=== PATIENT | male | born 1960 | race Caucasian/White ===

== ENCOUNTER 2025-04-10 07:48 | Inpatient (IN) | payer BC ==
[~2025-04-10] VITALS: Ht 170.2 cm; Wt 83.2 kg
--- NOTE | 2025-04-10 08:00 | ELECTROCARDIOGRAPH REPORT ---
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
[2025-04-10 08:17] LABS: MEAN PLATELET VOLUME 9.2 FL (7.4-10.4); RED CELL DISTRIBUTION WIDTH 13.2 % (11.5-14.5)
[2025-04-10 08:37] LABS: CREATININE 1.24 MG/DL (0.60-1.10); PRO BRAIN NATRIURETIC PEPTIDE 33 PG/ML (0-125); TOTAL CARBON DIOXIDE 27.6 MMOL/L (24-32); eCRCL 63 ML/MIN; eGFR 59 ML/MIN
--- NOTE | 2025-04-10 08:42 | Physician Documentation ---
History of Present Illness ~ Chief Complaint: Chest Pain Stated Complaint: CHEST PAIN Time Seen by MD: 08:07 HPI 64-year-old male presenting for acute onset chest pain. He states that he has been having intermittent chest pains that have been worsening over the past week. He states that initially they were happening maybe once or twice a day but over the past couple of days they have been happening every couple of hours. Yesterday they became very intense and this morning he states that he felt the pain once again and came to the ER. The pain is left-sided and radiates to his left arm. When he gets it he states that it is pressure-like and will be very severe. It will last about 30-40 minutes and will go away. Currently he is chest pain-free. The patient has a history of CAD and has had two stents placed in the past the most recent one in 2011. Reports that he also gets short of breath when he gets the chest pains and moving around makes the pain worse. He states that he has been getting the pains even when at rest. No reports of any other associated symptoms. Medication Reconciliation Allergies: Coded Allergies: No Known Allergies (Unverified , 04/10/25) Review of Systems All Other Systems at this time: Reviewed and Negative Physical Exam Vital Signs: Temperature: 98.4, Source: Temporal, Heart Rate: 65, Respiratory Rate: 17, BP: 130/79, Pulse Oximetry: 97, Weight: 84.090 Oxygen Flow Rate: 0 Physical Exam I have reviewed the triage vitals. CONST: Well developed and well nourished. In no acute distress HENT: Head Atraumatic EYES: Pupils are equal, round and reactive to light. Normal conjunctiva NECK: Normal range of motion. Supple. CARDIO: Normal rate and regular rhythm. No murmurs, rubs, or gallops. S1, S2. PULM/CHEST: No respiratory distress. Lungs clear to auscultation. No wheeze ABD: Soft and nontender. Nondistended. Bowel sounds normal. No guarding. : Exam deferred MSK: No edema. No deformity. NEURO: Alert and oriented to person, place and time. Moving all extremities SKIN: Warm and dry. PSYCH: Normal mood and affect. Good eye contact. Progress Results/Orders Results/Orders Orders - FELIPA MAGUIRE MD Chest,Single View (7/13/25 08:22) Monitor (04/10/25 07:58) Saline Lock (04/10/25 07:58) Oxygen (04/10/25 07:58) Hs Troponin I W Calculations (04/10/25 09:58) Hs Troponin I W Calculations (04/10/25 10:58) Page Hospitalist (04/10/25 09:37) Fill Out Med Reconciliation (04/10/25 09:37) Completed Orders - FELIPA MAGUIRE MD Chest,Single View (04/10/25 08:22) Cbc/Diff (04/10/25 07:58) BMP (04/10/25 07:58) PBNP (04/10/25 07:58) Electrocardiogram (04/10/25 07:58) Hs Troponin I W Calculations (04/10/25 07:58) Aspirin 81mg, Enteric-Coated (Ecotrin Ta (04/10/25 08:50) Normal Saline 1000ml (0.9% Sodium Chlori (04/10/25 08:50) Pt Inr (04/10/25 08:46) PTT (04/10/25 08:46) Medications Received in ER Medications (Trade) Dose Ordered Sig/Iada Route PRN Reason Start Time Stop Time Status Last Admin Dose Admin (Ecotrin tablet) 1 tab ONCE ONCE PO 04/10/25 08:50 04/10/25 08:51 DC 04/10/25 09:02 1 TAB Sodium Chloride 1,000 ml @ 1,000 mls/hr ONCE ONCE IV 04/10/25 08:50 04/10/25 09:49 DC 04/10/25 09:02 1,000 MLS/HR Vital Signs 04/10/25 04/10/25 04/10/25 04/10/25 07:51 08:10 08:18 08:21 Temp 98.4 Pulse 71 65 Resp 18 18 17 B/P (MAP) 131/92 130/79 (96) Pulse Ox 98 97 97 O2 Delivery Room Air* O2 Flow Rate 0 0 0 FiO2 21 04/10/25 09:15 Pulse 56 Resp 16 B/P (MAP) 109/72 (84) Pulse Ox 97 O2 Flow Rate 0 Laboratory Tests Test 04/10/25 08:09 04/10/25 10:18 White Blood Count 7.7 Red Blood Count 4.64 L Hemoglobin 15.4 Hematocrit 45.4 Mean Corpuscular Volume 97.8 Mean Corpuscular Hemoglobin 33.1 H Mean Corpuscular Hemoglobin Concent 33.8 Red Cell Distribution Width 13.2 Platelet Count 226 Mean Platelet Volume 9.2 Neutrophils (%) (Auto) 70.4 Lymphocytes (%) (Auto) 18.4 L Monocytes (%) (Auto) 9.4 Eosinophils (%) (Auto) 1.4 Basophils (%) (Auto) 0.4 Neutrophils # (Auto) 5.4 Lymphocytes # (Auto) 1.4 Monocytes # (Auto) 0.7 Eosinophils # (Auto) 0.1 Basophils # (Auto) 0.0 CBC Comment Prothrombin Time 11.1 INR International Normalized Ratio 1.1 Activated Partial Thromboplast Time 26 Coagulation Comments Sodium Level 137 Potassium Level 4.0 Chloride Level 105 Carbon Dioxide Level 27.6 Anion Gap 4 L Blood Urea Nitrogen 18 Creatinine 1.24 H Estimated GFR/1.73 m2 59 BUN/Creatinine Ratio 14.5 Glucose Level 126 H Calcium Level 9.7 Troponin I High Sensitivity 74 Pro-B-Type Natriuretic Peptide 33 Albumin 4.0 Chemistry Comments EKG/XRAY/CT/US/VASC/MRI EKG : Additional Comment EKG as interpreted by ED MD indicating normal sinus rhythm with a rate of 62 beats per minute, no ischemia, normal axis Chest X-Ray : Additional Comments CHEST RADIOGRAPH Indication: CP Technique: DI CHEST,SINGLE VIEW Comparison: None FINDINGS: The cardiac silhouette is unremarkable. The lungs demonstrate perihilar and bibasilar airspace opacities. The pulmonary vasculature is prominent. Small left pleural effusion. There is no pneumothorax. IMPRESSION: As above Heart Score: Heart Score Response (Comments) Value History Highly Suspicious 2 EKG Normal 0 Age 45-64 1 Risk Factors >3 or Hx ASHD 2 Troponin Normal limit 0 Total 5 Medical Decision Making Additional Information 64-year-old male with a history of CAD presenting with acute onset chest pain. The pattern of the chest pain is similar to an unstable angina pattern. His EKG is unremarkable. Troponins in the remainder of his lab work or thus far normal. Patient is chest pain-free currently however given the concerning nature of his chest pain and his history it would be prudent to have him admitted for ACS rule out and further risk stratification. Report called to admitting hospitalist team who accepted the patient. Departure Disposition: ADMITTED INPATIENT Admitted to Inpatient Unit: to hospitalist Admission Level of Care: Med/Surg with Tele Impression: Primary Impression: Acute chest pain Additional Impression: Unstable angina Condition: Guarded Referrals: NO PRIMARY CARE PROVIDER (PCP) Signature Scribe Signature: 1 Attestation: 1 FELIPA MAGUIRE MD Apr 10, 2025 08:42
--- NOTE | 2025-04-10 08:54 | RADIOLOGY REPORT ---
CHEST RADIOGRAPH Indication: CP Technique: DI CHEST,SINGLE VIEW Comparison: None FINDINGS: The cardiac silhouette is unremarkable. The lungs demonstrate perihilar and bibasilar airspace opacit ies. The pulmonary vasculature is prominent. Small left pleural effusion. There is no pneumothorax. IMPRESSION: As above
[2025-04-10 09:02] LABS: APTT 26 SECONDS (22-32); INR 1.1 INR
[2025-04-10] MEDS: normal saline 1000ml 1,000 ML IV ONE (09:02)
[2025-04-10] MEDS: aspirin 81mg, enteric-coated 1 TAB TABLET.DR PO ONE (09:02)
[2025-04-10] MEDS ORDERED: heparin 10,000 units/1 ML INJ IV PRN (11:05)
[2025-04-10] MEDS ORDERED: magnesium sulf-water 4G/100mL 100 ML IV PRN (11:10)
[2025-04-10] MEDS ORDERED: ondansetron/PF 4mg/2ml inj IV PRN (11:10)
[2025-04-10] MEDS ORDERED: HYDROcodone/acetaminophen 10/325mg tab PO PRN (11:10)
[2025-04-10] MEDS: PERFLUTREN PROTEIN-A MICROSPHR (Optison) 0.22 MG/ML 3ML VIAL IV ONE (11:10)
[2025-04-10] MEDS ORDERED: HYDROcodone/acetaminophen 5mg/325mg tablet PO PRN (11:10)
[2025-04-10] MEDS ORDERED: magnesium sulf-water 2g/50mL 50 ML IV PRN (11:10)
[2025-04-10] MEDS ORDERED: potassium Cl 20 mEq SR tablet PO PRN ×2 (11:10)
[2025-04-10] MEDS ORDERED: mag hydrox/Alum hydrox/simeth 30ml oral suspension PO PRN (11:10)
[2025-04-10] MEDS ORDERED: magnesium Cl slow-release 64mg tablet PO PRN (11:10)
[2025-04-10] MEDS ORDERED: potassium Cl 40MEQ/1/2NS 520ml 520 ML IV PRN (11:10)
[2025-04-10] MEDS ORDERED: EZET10TA48 PO (11:11)
[2025-04-10] MEDS ORDERED: EVOL140P3 SQ (11:11)
[2025-04-10] MEDS ORDERED: METF-900 PO (11:11)
[2025-04-10] MEDS ORDERED: ISOS30TA84 PO (11:11)
[2025-04-10] MEDS ORDERED: FENO160T34 PO (11:11)
[2025-04-10] MEDS ORDERED: CARV3.123 PO (11:11)
[2025-04-10] MEDS ORDERED: LEVO50TA8 PO (11:11)
[2025-04-10] MEDS ORDERED: LISI10TA27 PO (11:11)
--- NOTE | 2025-04-10 11:18 | ELECTROCARDIOGRAPH REPORT ---
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
[2025-04-10] MEDS: heparin 10,000 units/1 ML INJ IV ONE (11:32)
[2025-04-10] MEDS: heparin 25,000 UNIT/250ml bag 250 ML IV PRN (11:33)
[2025-04-10] MEDS: MESSAGE TO NURSING IV ONE (11:35)
--- NOTE | 2025-04-10 11:39 | HISTORY AND PHYSICAL-Residence ---
History & Physical Providers to CC Resident Creating Document: AIYANA RAJAN, GERARDO ~ History of Present Illness Reason for Admit\Complaint: Unstable angina History of Present Illness This is a 64 year old male patient with past history of CAD, hypothyroidism ,hypertension and prediabetes presented with symptoms of chest pain he described the pain as pressure-like pain rated the pain 07/10 and when he described that the pain radiated to his left arm. Patient has been having the pain for the last 11 days had multiple episodes of the pain. Not associated with any nausea ,vomiting, diaphoresis ,lightheadedness Patient underwent stenting in 2011 for his coronary artery disease and has been on strict medical adherence with his medications since then. Patient was given aspirin 324 mg in the ED. Patient's EKG did not show any significant changes in the ED. his last two levels of troponin 74 and jumped to 85. He was started on heparin drip by the ER physician because of the jump. Patient was supposed to have a Lexiscan done on the of this month but he developed angina like she was pains for the last 11 days and had to come to the ER today. Patient follows up with Dr. Treadwell for his cardiology. Patient's primary care doctor is Gladys Lopez. Patient also follows up with Dr. Damon ([facility]) Allergies: Coded Allergies: No Known Allergies (Unverified , 04/10/25) Home Medications Home Medications Active Reported Carvedilol 3.125 Mg Tablet 1 Tab PO BID Fenofibrate 160 Mg Tablet 1 Tab PO DAILY Repatha Sureclick (Evolocumab) 140 Mg/Ml Pen.injctr 1 Ml SQ Q2W Levothyroxine Sodium 50 Mcg Tablet 1 Tab PO DAILY Metformin ER* (Metformin HCl) 500 Mg Tab.sr.24h 1 Tab PO BID Ezetimibe 10 Mg Tablet 1 Tab PO DAILY Isosorbide Mononitrate Er (Isosorbide Mononitrate) 30 Mg Tab.er.24h 1 Tab PO BID Lisinopril 10 Mg Tablet 1 Tab PO DAILY Past Medical History Past Medical History Coronary artery disease(2011)-underwent stenting Hypothyroidism Hypertension Prediabetes Past Surgical History Surgical History Comment Stenting underwent in 2012 Surgical procedure for penile fracture(10 years ago) Past Social History Social History Comment Patient drinks alcohol in moderation 2-3 glasses of wine once a week Not a smoker Does not endorse any drugs Smoking: Non-Smoker ROS All Other Systems: Reviewed and Negative (Except for pertinent positive symptoms) Exam Vitals: Vital Signs Date Time Temp Pulse Resp B/P (MAP) Pulse Ox O2 Delivery O2 Flow Rate FiO2 04/10/25 11:00 56 17 124/74 (91) 97 0 04/10/25 08:18 Room Air* 21 04/10/25 07:51 98.4 General: Awake , alert, and oriented x4, resting comfortably in the bed, in no acute distress HEENT: Atraumatic, normocephalic, EOMI, anicteric sclera ; pink conjunctiva Neck: Trachea midline. Supple, full range of motion, no JVD Cardiac: Regular rhythm, regular rate with no murmurs all over the precordium. Respiratory: Equal breath sounds bilaterally, no tachypnea, no wheezing ,rub or rales, Chest wall is symmetric and without deformity. Gastrointestinal: Abdomen symmetric, non-distended, soft, non-tender, normal bowel sounds x4 quadrant, normoactive, no hepatosplenomegaly Musculoskeletal: No pedal edema, no cyanosis Neurological: Speech is clear, alert, and oriented x 4. No motor or sensory deficit, deep tendon reflexes normal, cerebellar intact. Cranial nerves II-XII intact. Skin: Face appears flushed but patient said that was his normal Diagnostic Data Last Recorded Lab Results: 04/10/25 0809 04/10/25 0809 Diagnostic Data: Laboratory Tests Test 04/10/25 08:09 Prothrombin Time 11.1 SECONDS (9.0-12.0) INR International Normalized Ratio 1.1 INR Activated Partial Thromboplast Time 26 SECONDS (22-32) Coagulation Comments Additional Plan 1. Unstable Angina (UA) Troponin-74,85 patient initially symptoms of chest pain rated 7/10, radiating to the left arm. No ST-segment changes on EKG. Serial troponins-74,85,75. TAMMY score = 4 intermediate risk (20% risk at 14 days of: all-cause mortality, new or recurrent [place], or severe recurrent ischemia requiring urgent revascularization.) Heart score=2 Low score (0.9-1.7% risk of adverse cardiac event) Plan:Lipid profile ordered,Echocardiogram ordered Patient was initially started on heparin drip in the ED,we discontinued the heparin drip. Started the patient on aspirin 81 mg metoprolol 25 mg and atorvastatin 80 mg. Lexiscan has been ordered for tomorrow 2. Coronary artery disease: Patient was diagnosed coronary artery disease in 2011 and has been on medications since then. Patient underwent stenting in 2011. Patient is on carvedilol 3. ACUTE KIDNEY INJURY, possible vasomotor nephropathy Patient's creatinine is elevated to 1.24, starting the patient on 50 mL/hour IV fluids His proBNP is negative Ordered serum osmolality ,serum sodium, urine osmolality ,urine sodium and fractional excretion of sodium(prerenal versus renal) 4. Prediabetes Patient takes metformin HLC she 500 mg once in the morning and once in the night every day We will continue to treat him with insulin based on hyperglycemia hypoglycemia sliding scale. Hb A1c is 5.6 4. Hyperlipidemia Patient takes Raptha(Evolocumab) injection 140 mg every other week per Dr. Treadwell Patient also takes fenofibrate 160 mg daily p.m.. 5. Hypothyroidism Patient is on levothyroxine 50 mcg, we will continue his home medication 6. Acute Stress disorder Work related stress Patient take Sertaline HCL 25mg,1 tab every other day Addition to this patient takes testosterone injections 0.35 twice a week and Trimix 1 mg p.r.n. when needed for intimacy. Patient follows up with his [facility] We will continue his medications once home rec is done. Pending home rec Code Status: Full code DVT Prophylaxis: SCDs Nutrition: Heart healthy diet, NPO from 3:00 a.m. for Lexiscan Prognosis: Guarded Disposition: Patient will undergo with Lexiscan tomorrow Aiyana Rajan, Internal medicine resident,PGY-1 Date of Service: Apr 10, 2025 Billing Provider: NOBLE REIS MD,AIYANA, RES Apr 10, 2025 11:39
[2025-04-10 12:32] VITALS: BP 117/77; PULSE 60; RESP 14; TEMP 97.5; O2SAT 98
[2025-04-10] MEDS ORDERED: ASPI-920 PO (13:23)
[2025-04-10] MEDS ORDERED: [UNRECOGNIZED DRUG - CODE] (13:23)
[2025-04-10] MEDS ORDERED: SERT-432 PO (13:24)
[2025-04-10] MEDS: clopidogrel 300mg tablet PO ONE (13:31)
[2025-04-10 15:00] VITALS: BP 109/70; PULSE 60; RESP 16; TEMP 97.6; O2SAT 97
[2025-04-10 16:42] LABS: LEUKOCYTE ESTERASE ,URINE TRACE (Neg); NITRITES, URINE NEGATIVE (Neg); OCCULT BLOOD,URINE NEGATIVE (Neg)
[2025-04-10 16:43] LABS: UA COLLECTION TYPE NON-SPECIFIED
[2025-04-10 16:52] LABS: MUCUS STRANDS NONE SEEN /LPF (Neg); SQUAMOUS EPITHELIAL CELL,UR NONE SEEN /LPF (FEW)
[2025-04-10] MEDS ORDERED: aminophylline 500mg/20ml vial IV PRN (16:55)
[2025-04-10] MEDS ORDERED: metoprolol tartrate 1mg/ml inj IV PRN (16:55)
[2025-04-10 18:00] VITALS: BP 122/82; PULSE 65; RESP 14; TEMP 97.8; O2SAT 95
[2025-04-10] MEDS ORDERED: metoprolol succinate 25mg (24-HOUR) SR. Tablet PO SCH (18:00)
[2025-04-10] MEDS: metoprolol succinate 25mg (24-HOUR) SR. Tablet PO SCH (19:42)
[2025-04-10] MEDS: K and/or MAG REPLACEMENT MC SCH (19:43)
[2025-04-10 20:00] VITALS: RESP 17; O2SAT 96
[2025-04-10 22:00] VITALS: BP 142/83; PULSE 74; RESP 17; TEMP 97.6; O2SAT 96
[2025-04-11] VITALS (25 sets, daily range): BP systolic 120–190; BP diastolic 73–102; PULSE 50–96; RESP 14–27; TEMP 97.3–97.8; O2SAT 94–99
[2025-04-11 04:01] LABS: OSMOLALITY UA 481.0 MOSM/K (50-1400)
[2025-04-11 04:03] LABS: CREATININE,URINE RANDOM 79.0 MG/DL
[2025-04-11 06:06] LABS: MEAN PLATELET VOLUME 9.7 FL (7.4-10.4); RED CELL DISTRIBUTION WIDTH 13.4 % (11.5-14.5)
[2025-04-11 06:51] LABS: CREATININE 1.22 MG/DL (0.60-1.10); TOTAL CARBON DIOXIDE 25.3 MMOL/L (24-32); eCRCL 64 ML/MIN
[2025-04-11 06:52] LABS: PHOSPHORUS 3.0 MG/DL (2.3-4.5); eGFR 60 ML/MIN
[2025-04-11 07:31] LABS: OSMOLALITY 290 MOSM/K (280-300)
[2025-04-11] MEDS: regadenoson 0.4mg/5ml syringe IV PRN (12:23)
[2025-04-11] MEDS: aminophylline 250mg/10ml inj. IV PRN (12:32)
--- NOTE | 2025-04-11 14:38 | RADIOLOGY REPORT ---
Reason for study/Clinical History: unstable angina Comparison Study: None Myocardial Perfusion Study with SPECT Technique: The patient received an intravenous injection of mCi of technetium-99m Sestamibi while at rest. After a short delay, SPECT tomographic images of the heart were obtained. The patient then went to the stress lab where they received an intravenous Lexiscan utilizing standard protocol. mC i of technetium-99m Sestamibi was injected intravenously immediately after the start of the infusio n. Gated SPECT tomographic images of the heart were acquired and processed. Findings/ IMPRESSION: Reversible defects suggestive of acute ischemia are present in the anterior wall and septal wall. Subtle reversible defect in the inferior wall may represent artifact versus mild ischemia. No fixed defects to suggest chronic infarct. Left ventricular ejection fraction is 39%.
[2025-04-11] MEDS ORDERED: dextrose 50%-water 50ml dispensing syringe IV PRN ×3 (15:20→21:05)
[2025-04-11] MEDS ORDERED: DEXTROSE 15 GM of carb/4 tabs (each vial/BOTTLE has 4 tablets) PO PRN ×2 (15:20)
[2025-04-11] MEDS ORDERED: glucagon, human recombinant 1mg kit SUBCUT PRN (15:20)
[2025-04-11] MEDS: REPATHA SURECLICK 140 MG SQ SCH (15:20)
--- NOTE | 2025-04-11 15:25 | PROGRESS NOTE- Residence ---
Progress Note - Resident Providers to CC Resident Creating Document: BIPIN RAJAN, RES ~ Antibiotic Timeout Antibiotic Ordered?: No Subjective The patient has been evaluated at the bedside. The patient currently denies any chest pain shortness of breath. Objective Vital Signs Date Time Temp Pulse Resp B/P (MAP) Pulse Ox O2 Delivery O2 Flow Rate FiO2 04/11/25 12:37 60 16 156/89 97 Room Air 0.0 04/11/25 11:00 97.4 04/10/25 08:18 21 Physical exam: General: Well alert, well oriented, not confused, not agitated, not in acute distress, well cooperated during the physical. HEENT: Conjunctive are pink, sclerae clear, no icterus, pupil is equal in both sides, reactive to light, no ear discharge, no pharyngeal erythema or an edema. Neck: Supple, no JVD, no lymphadenopathy and thyromegaly. Chest: Equal air entry on both lungs, no additional sounds no rhonchi no wheezing at the moment. Cardiovascular: S1-S2 regular sinus rhythm and, regular rate, no gallops, no rubs, no murmurs Abdomen: No visible peristalsis, Bowel sounds present on auscultation, soft, nontender, no guarding, no rigidity Extremities: No obvious deformities, no pitting edema bilaterally, capillary refill intact, peripheral pulsations are intact on both sides Central Nervous System: No focal neurological deficits, no motor or sensory weakness in all 4 extremities, could move all 4 extremities, 2+ deep tendon reflexes, negative Babinski. Musculoskeletal: No joint swelling, deformities, inflammations, and no scoliosis and back tenderness Skin: Warm and dry. Result Diagram: 04/11/25 0521 04/11/25 0521 Coagulation Studies Laboratory Tests Test 04/10/25 08:09 04/11/25 05:21 Prothrombin Time 11.1 SECONDS (9.0-12.0) INR International Normalized Ratio 1.1 INR Activated Partial Thromboplast Time 26 SECONDS (22-32) Coagulation Comments Assessment Assessment 64-year-old male patient came to the hospital with chief complaint of chest pain mostly with exertion. Plan Plan Unstable Angina: S/p two stents in 2011 after ACS: Troponin-74,85 patient initially symptoms of chest pain rated 7/10, radiating to the left arm. No ST-segment changes on EKG. Serial troponins-74,85,75. TAMMY score = 4 intermediate risk (20% risk at 14 days of: all-cause mortality, new or recurrent [place], or severe recurrent ischemia requiring urgent revascularization.) Heart score=2 Low score (0.9-1.7% risk of adverse cardiac event) Plan:Lipid profile ordered,Echocardiogram ordered Patient was initially started on heparin drip in the ED,we discontinued the heparin drip. Started the patient on aspirin 81 mg metoprolol 25 mg and atorvastatin 80 mg. Lexiscan has been ordered for tomorrow. 04/11/2025: Lexiscan: Reversible defects suggestive of acute ischemia are present in the anterior wall and septal wall. Subtle reversible defect in the inferior wall may represent artifact versus mild ischemia. No fixed defects to suggest chronic infarct. Left ventricular ejection fraction is 39%. Echocardiogram: LVEF 50-55%, overall systolic function is mildly reduced, right ventricle is mildly dilated in size with normal function. Cardiology: Dr. Treadwell consulted. Awaiting recommendations. Follow-up lipid panel. Continue aspirin 81 mg daily. Continue atorvastatin 80 mg daily. On metoprolol succinate 25 mg daily. Acute kidney injury, possible vasomotor nephropathy Creatinine 1.22, BUN/creatinine ratio 11.5. His proBNP is normal. Ordered serum osmolality ,serum sodium, urine osmolality ,urine sodium and fractional excretion of sodium(prerenal versus renal). 04/11/2025: Fractional excretion of sodium 1.3%: Indeterminate. BUN/creatinine ratio 11.5, GFR 60. NS at 50 mL/hour Diabetes mellitus: Patient takes metformin HLC she 500 mg once in the morning and once in the night every day. Current hemoglobin A1c 5.6. Hyper/hypoglycemia protocol in place. Sliding scale short-acting insulin. Hyperlipidemia Continue Evolocumab injection 140 mg every other week per Dr. Treadwell Fenofibrate 160 mg daily p.m.. Hypothyroidism Continue levothyroxine 50 mcg daily. Acute Stress disorder Work related stress Continued sertraline 25 mg Q 48 H. Code status: Full code DVT prophylaxis: Heparin Analgesia/sedation: Blanca /morphine Line/tube: PIV GI prophylaxis: None Nutrition: NPO PT: Ordered Prognosis: Guarded Disposition: We will continue medical therapy. Cardiology consulted, awaiting recommendations. Bipin Carranza Internal Medicine Resident [facility] Date of Service: Apr 11, 2025 Billing Provider: NOBLE REIS MD, FRANCO LUIS, RES Apr 11, 2025 15:25
[2025-04-11] MEDS ORDERED: INSULIN LISPRO 100 UNIT/ML INSULN.PEN MULTI-DOSE SQ SCH (17:00)
[2025-04-11] MEDS: normal saline 1000ml 1,000 ML IV SCH (17:20)
--- NOTE | 2025-04-11 17:44 | CONSULTATION REPORT ---
History of Present Illness Providers to CC CC: ALEIDA TREADWELL MD ~ Reason for Admit\Admit Dx: Cardiology consultation History of Present Illness This is a 64-year-old male with history of coronary artery disease, hypertension, hyperlipidemia on Repatha, hypothyroidism. He had a stent to the distal right coronary artery and PDA in 2011 at [facility]. Presented secondary to increasing chest pain with radiation down the left arm as well as dyspnea on exertion for the past 11 days. Underwent Lexiscan stress test that showed anteroseptal reversibility. TTE with a preserved LVEF. Minimally elevated troponins. Cardiology consultation was requested with Dr. Treadwell who is patient's primary core maker. Allergies: Coded Allergies: No Known Allergies (Unverified , 04/10/25) Home Medications Home Medications Active Reported Sertraline HCl 25 Mg Tablet 1 Tab PO Q48H 30 Days Testosterone-Anastrozl 75-4 mg (Testosterone/Anastrozole) 75 Mg-4 Mg Pellet.ea. 0.35 THS Aspirin Chewable (Aspirin) 81 Mg Tab.chew 81 Mg PO DAILY Fenofibrate 160 Mg Tablet 1 Tab PO DAILY Repatha Sureclick (Evolocumab) 140 Mg/Ml Pen.injctr 1 Ml SQ Q2W Levothyroxine Sodium 50 Mcg Tablet 1 Tab PO DAILY Metformin ER* (Metformin HCl) 500 Mg Tab.sr.24h 1 Tab PO BID Isosorbide Mononitrate Er (Isosorbide Mononitrate) 30 Mg Tab.er.24h 1 Tab PO BID Past Medical History Medical History Comment Coronary artery disease Hypertension Hyperlipidemia Prediabetes Hypothyroidism Past Surgical History Surgical History Comment Coronary stent Past Family History Family History Comment Father had an ND. at age 70 Past Social History Social History Comment Lifelong nonsmoker. No alcohol or drug use. Physical Exam Last Vital Signs Recorded: RN Vital Signs have been reviewed: Yes, Temperature: 97.6, Source: Temporal, Heart Rate: 59, Respiratory Rate: 16, BP: 144/99, Pulse Oximetry: 97, Weight: 81.100 Physical Exam General: Awake, alert, oriented. No apparent distress Neck: Supple. Normal range of motion. No JVD Respiratory: Lungs are clear to auscultation bilaterally. No respiratory distress. Chest: Normal shape and size. No accessory muscle use. Cardiovascular: Regular rate and rhythm. S1-S2. No murmur, gallop, rub. Gastrointestinal: Abdomen is soft. Nontender to palpation. Bowel sounds present. Extremities: No lower extremity edema, cyanosis or clubbing. Neurologic: Alert and oriented x4. Nonfocal Psychiatric: Normal mood and affect. Skin: Normal color. Warm and dry. Review of Systems ROS Patient complained of chest pain as noted in HPI. Furthermore had dyspnea on exertion. Was asked, but otherwise denies review of systems. Results Cardiac Stress Test Cardiac Stress Test Ordering Physician: ALYSSA RAJAN Exam: NM SURYA SCAN Reason for study/Clinical History: unstable angina Comparison Study: None Myocardial Perfusion Study with SPECT Technique: The patient received an intravenous injection of mCi of technetium- 99m Sestamibi while at rest. After a short delay, SPECT tomographic images of the heart were obtained. The patient then went to the stress lab where they received an intravenous Lexiscan utilizing standard protocol. mCi of technetium-99m Sestamibi was injected intravenously immediately after the start of the infusion. Gated SPECT tomographic images of the heart were acquired and processed. Findings/ IMPRESSION: Reversible defects suggestive of acute ischemia are present in the anterior wall and septal wall. Subtle reversible defect in the inferior wall may represent artifact versus mild ischemia. No fixed defects to suggest chronic infarct. Left ventricular ejection fraction is 39%. Electronically Signed by:THIERRY MELENDEZ MD Date & Time: 04/11/25 1435 Diagram Lab Result Diagram: 04/11/25 0521 04/11/25 0521 Assessment/Plan Additional Plan Unstable angina Hx PCI RCA/PAD 2011 --Lexiscan with reversibility the anterior/septal wall --recommend angiogram. The risks, benefits and alternatives were reviewed with him. He had the opportunity to ask questions and wishes to proceed. He is being scheduled for this evening. --aspirin 81 mg daily --metoprolol succinate 25 mg daily --continue Repatha. --check lipids Hypertension --start lisinopril Case reviewed with Dr. Annette Treadwell who is in agreement with this plan. Supervising MD Supervising Physician: TONYA Erazo NP Apr 11, 2025 17:44
[2025-04-11] MEDS ORDERED: verapamil 2.5 mg/ml inj IV ONE (18:12)
[2025-04-11] MEDS ORDERED: fentaNYL/PF 50MCG/1 ML 2ML syringe ONE (18:13)
[2025-04-11] MEDS ORDERED: heparin 1,000unit/ml 10ml vial 10 ML ONE (18:13)
[2025-04-11] MEDS ORDERED: LIDOcaine 1% 30ml preserv. free vial ONE (18:13)
[2025-04-11] MEDS ORDERED: midazolam 1 mg/ML 2ml injection ONE (18:13)
--- NOTE | 2025-04-11 18:41 | CARDIOLOGY REPORT ---
APPROVED REPORT EXAM: Comprehensive 2D, Doppler, and color-flow Echocardiogram. Patient Location: [facility] B Heart Rate: 60's bpm Rhythm: SINUS Indications CHEST PAIN STENTS x2 2011 (RCA) HYPTERTENSION Rink Rat: Too Treadwell MD Previous echo: [facility] 02-11-22 EF 55-60%, trTR, trMR, mLVH 2D Dimensions RVDd 3.5 cm IVSd 0.9 (0.7-1.1cm) LVDd 4.8 cm PWd 1.0 (0.7-1.1cm) IVSs 1.2 (0.8-1.2cm) LVDs 4.1 (2.5-4.0cm) PWs 1.3 (0.8-1.2cm) LVOT Diameter 1.98 (1.8-2.4cm) IVC 14.98 mmFS (%) 14.5 % SV 32.5 ml CO 1.9 L/min M-Mode Dimensions Left Atrium(MM) 3.88 (2.5-4.0cm) Aortic Root 2.78 (2.2-3.7cm) Aortic Cusp Exc 1.82 (1.5-2.0cm) MV EPSS 1.1 (<0.5cm) Aortic Valve AoV Peak Arnel. 127.2 cm/s AoV VTI 26.0 cm AO Peak GR. 6.5 mmHg AO Mean GR. 4 mmHg LVOT VTI 18.18 cm LVOT Peak Arnel. 98.6 cm/s JOSÉ(VTI)/BSA 2.15 cm2/m2 JOSÉ (VTI) 2.15 cm2 Mitral Valve MV E Velocity 88.2 cm/s MV Peak Gr. 3 mmHg MV DECEL TIME 148 ms MV A Velocity 59.6 cm/s MV PHT 56 ms E/A Ratio 1.5 MVA (PHT) 3.93 cm2 MV VMax88.5 cm/s TDI Lateral E' P. V9.96 cm/s E/Lateral E' 8.9 Pulmonary Vein S1 Velocity 66.3 cm/s D2 Velocity 57.1 cm/s PVa Efbnfsgi08.0 cm/s PVa [id number] msec LEFT VENTRICLE Normal LV size and wall thickness. Overall systolic function is mildly reduced. LVEF is 50-55%. RIGHT VENTRICLE RV is mildly dilated in size with normal function. ATRIA The left atrium size is normal. AORTIC VALVE Trileaflet AV appears mildly sclerotic and calcified without stenosis. Trivial insufficiency. MITRAL VALVE Mild MV annular calcification without stenosis. Trace regurgitation. TRICUSPID VALVE TV appears structurally normal with trace regurgitation. PULMONIC VALVE Normal PV without stenosis, physiologic insufficiency. GREAT VESSELS The aortic root is normal in size. IVC is normal in size and collapses greater than 50% with inspirat ion. PERICARDIUM Normal pericardium. No effusion. Prominant fat pad Other Information Study Quality: Adequate but TDS SSN window Conclusion Normal LV size and wall thickness. Overall systolic function is mildly reduced. LVEF is 50-55%. RV is mildly dilated in size with normal function. The left atrium size is normal. Trileaflet AV appears mildly sclerotic and calcified without stenosis. Trivial insufficiency. Mild MV annular calcification without stenosis. Trace regurgitation. TV appears structurally normal with trace regurgitation. Normal pericardium. No effusion. Prominant fat pad
[2025-04-11] MEDS ORDERED: nitroGLYCERIN 500mcg/5mL D5W 5 ML IV ONE (18:51)
[2025-04-11] MEDS ORDERED: heparin, porcine 5000 units/ml vial SQ SCH (20:00)
[2025-04-11] MEDS ORDERED: OXAZEpam 15mg capsule PO PRN (20:05)
[2025-04-11] MEDS ORDERED: HYDROcodone/acetaminophen 5mg/325mg tablet PO PRN (20:05)
[2025-04-11] MEDS: HEPARIN DRIP INITAL BOLUS --- DO NOT GIVE/ORDER MC ONE ×2 (20:45)
[2025-04-11] MEDS: HEPARIN DRIP-CARDIAC**PHARMACIST-TO-DOSE IV ONE (20:45)
[2025-04-11] MEDS: isosorbide mononitrate 30mg tab.SR.24H PO SCH (21:05)
[2025-04-11] MEDS ORDERED: VANCOMYCIN/H2O 1.5g/300mL PB 300 ML IV ONE (21:05)
[2025-04-11] MEDS: ceFAZolin 2gm/dext,iso 50mL 50 ML IV ONE (21:05)
[2025-04-11] MEDS ORDERED: insulin glargine (Lantus) pen - multi-dose SQ PRN (21:05)
--- NOTE | 2025-04-11 21:08 | CONSULTATION REPORT ---
Consult Providers to CC ~ History of Present Illness Reason for Admit\Complaint: angina History of Present Illness Mr Reilly is a 64 year old male with known CAD, s/p PCI in 2011. Admitted with a 2 week history of progressive exertional chest pain/pressure. Noted to have slight troponin, which prompted a LHC. Findings included high grade lesions of the left main, proximal LAD, diag, mid RCA. He is currently pain free and hemodynamically stable- accompanied by his spouse and daughter. 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 Allergies: Coded Allergies: No Known Allergies (Unverified , 04/10/25) Home Medications Home Medications Active Reported Sertraline HCl 25 Mg Tablet 1 Tab PO Q48H 30 Days Testosterone-Anastrozl 75-4 mg (Testosterone/Anastrozole) 75 Mg-4 Mg Pellet.ea. 0.35 THS Aspirin Chewable (Aspirin) 81 Mg Tab.chew 81 Mg PO DAILY Fenofibrate 160 Mg Tablet 1 Tab PO DAILY Repatha Sureclick (Evolocumab) 140 Mg/Ml Pen.injctr 1 Ml SQ Q2W Levothyroxine Sodium 50 Mcg Tablet 1 Tab PO DAILY Metformin ER* (Metformin HCl) 500 Mg Tab.sr.24h 1 Tab PO BID Isosorbide Mononitrate Er (Isosorbide Mononitrate) 30 Mg Tab.er.24h 1 Tab PO BID Past Medical History Past Medical History HTN, hypercholesterolemia, CKD, CAD, anxiety Exam Vitals: Vital Signs Date Time Temp Pulse Resp B/P (MAP) Pulse Ox O2 Delivery O2 Flow Rate FiO2 04/11/25 18:30 55 04/11/25 17:22 97 Room Air* 0 21 04/11/25 15:00 97.6 16 144/99 (114) General: NAD HEENT: PERRLA, mucous membrane without lesions, good dentition. Neck: supple, no JVD Chest: clear bilat Cardiovascular: RRR, no murmurs Abdomen: soft, ND/NT Extremities: no edema, brisk cap refill Central Nervous System: no deficits Musculoskeletal: full ROM Skin: no lesions, warm Diagnostic Data Last Recorded Lab Results: 04/11/25 0521 04/11/25 0521 Diagnostic Data: Laboratory Tests Test 04/10/25 08:09 04/11/25 05:21 Prothrombin Time 11.1 SECONDS (9.0-12.0) INR International Normalized Ratio 1.1 INR Activated Partial Thromboplast Time 26 SECONDS (22-32) Coagulation Comments Additional Plan 64 year old male with 2 weeks of unstable angina, found to have multi-vessel CAD involving the left main, currently stable. We discussed general options including medical therapy, PCI, and surgical revascularization. Given the extensive disease, I have recommended surgical intervention. We discussed some of the technical aspects of the procedure including risks and benefits. He and his family understood and had all questions answered to their satisfaction. pre- op studies ordered. Will plan for surgery tomorrow am. Heparin gtt started. AYAH SAM MD Apr 11, 2025 21:08
[2025-04-11] MEDS: heparin 25,000 UNIT/250ml bag 250 ML IV PRN (21:12)
[2025-04-11 21:15] LABS: MEAN PLATELET VOLUME 9.4 FL (7.4-10.4); RED CELL DISTRIBUTION WIDTH 13.2 % (11.5-14.5)
[2025-04-11 21:20] LABS: APTT 50 SECONDS (22-32); INR 1.1 INR
[2025-04-11] MEDS: MESSAGE TO NURSING IV ONE (21:40)
[2025-04-11 22:17] LABS: ABG BASE EXCESS -2.3 mmol/L (-2.0-3.0); ABG HCO3 21.5 mmol/L (21.0-28.0); ABG OXYGEN SATURATION 96.4 % (94.0-98.0); ABG PCO2 (T) 34.3 mmHg (35.0-48.0); ABG PH (T) 7.414 (7.350-7.450); ABG PO2 (T) 79.6 mmHg (83.0-108.0); FCOHb 1.1 % (0.5-1.5); FHHb 3.6 % (0.0-5.0); FIO2 21.0 mmHg/%; FMetHb 0.1 % (0.0-1.5); FO2Hb 95.2 % (94.0-98.0); MODE ROOM AIR; PATIENT TEMPERATURE 36.6; TOTAL HEMOGLOBIN 17.0 G/dl (13.5-17.5)
--- NOTE | 2025-04-11 22:21 | RADIOLOGY REPORT ---
NON-CONTRAST CHEST COMPUTERIZED TOMOGRAPHY REASON FOR STUDY: PRE-OP CABG COMPARISON: None TECHNIQUE: The exam was performed on a multidetector spiral scanner. Spiral scans were acquired throu gh the chest. 2-D coronal and sagittal reformatted images were provided. Radiation optimization: All CT scans at this facility use at least one of these dose optimization techniques: Automated exposure control mA and/or kV adjustment per patient size (includes targeted exams where dose is matched to cl inical indication) or iterative reconstruction. RADIATION DOSE: CTDI: 17 mGy DLP: 564 mGy-cm FINDINGS: The lungs are grossly clear. There is no bronchiectasis or honeycombing. There is no pleu ral effusion. There is no pneumothorax. The heart is mildly enlarged. There are coronary artery calci fications. There is no thoracic aortic aneurysm. There is no significant calcification of the ascendi ng aorta. Partial visualization of the upper abdomen demonstrates calcified gallstones. No acute osse ous abnormality is identified. IMPRESSION: No acute cardiopulmonary pathology. No significant calcification of the ascending aorta. Coronary artery disease.
[2025-04-12] VITALS (16 sets, daily range): BP systolic 70–180; BP diastolic 42–99; PULSE 55–87; RESP 13–32; TEMP 97.2–97.8; O2SAT 94–98
[2025-04-12 03:37] LABS: MEAN PLATELET VOLUME 9.6 FL (7.4-10.4); RED CELL DISTRIBUTION WIDTH 13.2 % (11.5-14.5)
[2025-04-12 03:43] LABS: INR 1.1 INR
[2025-04-12 03:47] LABS: CHOL/HDL RATIO 2.0 (0.00-4.99); CREATININE 1.05 MG/DL (0.60-1.10); LDL CHOLESTEROL 24 MG/DL (50-100); PHOSPHORUS 4.1 MG/DL (2.3-4.5); TOTAL CARBON DIOXIDE 27.9 MMOL/L (24-32); eCRCL 74 ML/MIN; eGFR 71 ML/MIN
[2025-04-12] MEDS: heparin 10,000 units/1 ML INJ IV PRN (04:16)
[2025-04-12] MEDS: MESSAGE TO NURSING IV ONE (04:34)
[2025-04-12] MEDS: heparin 5,000 units/ml 10ML vial IV ONE (04:37)
[2025-04-12] MEDS ORDERED: BUPIVAcaine 0.5% inj/PF 30 ML ONE (06:39)
[2025-04-12] MEDS ORDERED: gelatin sponge, absorbable (Gelfoam 100) sponge TP ONE (06:39)
[2025-04-12] MEDS: levoTHYROXINE 25mcg tablet PO SCH (07:19)
[2025-04-12] MEDS: mupirocin 2% nasal ointment 1gm UD NS SCH (07:25)
[2025-04-12] MEDS: MESSAGE TO NURSING PO ONE ×3 (07:25→16:02)
[2025-04-12] MEDS: INSULIN LISPRO 100 UNIT/ML INSULN.PEN MULTI-DOSE SQ SCH (08:00)
[2025-04-12] MEDS: FENOFIBRATE 160 MG TABLET PO SCH (08:00)
--- NOTE | 2025-04-12 08:24 | VASCULAR REPORT ---
PROCEDURE: [facility] VL VENOUS Exam Date: 04/12/2025 06:47 AM History: Pre op cabg Findings: Technique: Duplex Doppler evaluation of the superficial veins of the right and left lower extremities was perfor med including color Doppler and spectral/pulsed waveform analysis. Findings: Measurements of the lower extremity superficial veins in millimeters (mm) are provided below. RIGHT GREAT SAPHENOUS VEIN (GSV) in mm: 3.7 at proximal thigh, patent. 3.4 at mid thigh, patent. 3.4 at distal thigh, patent. 2.8 at proximal calf, patent. 2.0 at mid calf, patent. 2.1 at distal calf, patent. LEFT GREAT SAPHENOUS VEIN (GSV) in mm: 2.3 at proximal thigh, patent. 2.0 at mid thigh, patent. 2.4 at distal thigh, patent. 3.3 at proximal calf, patent. 2.0 at mid calf, patent. 2.2 at distal calf, patent. Impression: Lower extremity superficial venous mapping as detailed above.
--- NOTE | 2025-04-12 08:26 | VASCULAR REPORT ---
Carotid Duplex Clinical History: Preop CABG evaluation Comparison: None Technique: Duplex Doppler evaluation of the extracranial carotid and vertebral arteries including color Doppler and spectral/pulsed waveform analysis was performed. Findings: RIGHT SIDE: The peak systolic velocities are 62 cm/s in the CCA, 475 cm/s in the ICA. The ICA/CCA ratio is 9.13. The external carotid artery is patent with peak systolic velocity of 129 cm/s proximally. The subclavian artery is patent with peak systolic velocity of 84 cm/s. There is appropriate antegrade flow in the right vertebral artery. LEFT SIDE: The peak systolic velocities are 78 cm/s in the CCA, 116 cm/s in the ICA. The ICA/CCA ratio is 1.56. The external carotid artery is patent with peak systolic velocity of 165 cm/s proximally. The subclavian artery is patent with peak systolic velocity of 124 cm/s. There is appropriate antegrade flow in the left vertebral artery. IMPRESSION: Moderate to severe heterogeneous irregular plaque with calcification noted at the carotid artery bifu rcation extending into the proximal internal carotid arteries bilaterally, [id number]-left. Greater than 70% stenosis, possible near occlusion visualized in the right internal carotid artery. The left internal carotid artery displays less than 50% stenosis per peak systolic velocity criteria. Visually the left internal carotid artery appears greater than 50% stenosis. Less than 50% stenosis in the bilateral external and common carotid arteries. Antegrade flow in bilateral vertebral arteries. Multiphasic waveforms in the subclavian arteries, tony aterally. Reference: Radiology 2003; 229:340-346 Normal ICA PSV is <125 cm/sec and no plaque or intimal thickening is visible sonographically addition al criteria include ICA/CCA PSV ratio <2.0 and ICA EDV <40 cm/sec <50% ICA stenosis ICA PSV is <125 cm/sec and plaque or intimal thickening is visible sonographically additional criteria include ICA/CCA PSV ratio <2.0 and ICA EDV <40 cm/sec 50-69% ICA stenosis ICA PSV is 125-230 cm/sec and plaque is visible sonographically additional criter ia include ICA/CCA PSV ratio of 2.0-4.0 and ICA EDV of 40-100 cm/sec 70% ICA stenosis but less than near occlusion ICA PSV is >230 cm/sec and visible plaque and luminal narrowing are seen at torres-scale and color Doppler ultrasound (the higher the Doppler parameters lie above the threshold of 230 cm/sec, the greater the likelihood of severe disease) additional criteria include ICA/CCA PSV ratio >4 and ICA EDV >100 cm/sec
[2025-04-12] MEDS: heparin 10,000 units/1 ML INJ IV ONE (09:00)
[2025-04-12] MEDS ORDERED: propofol inj 20 ML IV ONE (09:08)
[2025-04-12] MEDS ORDERED: rocuronium 10mg/ml inj IV ONE ×5 (09:09→16:29)
[2025-04-12] MEDS ORDERED: SUfentanil 50mcg/ml 1ml amp IV ONE (09:10)
[2025-04-12] MEDS ORDERED: MIDAZolam 1 MG/ML 5ML VIAL ONE (09:10)
[2025-04-12] MEDS: VANCOMYCIN/H2O 1.5g/300mL PB 300 ML IV ONE (09:58)
[2025-04-12] MEDS: midazolam 1 mg/ML 2ml injection IV ONE (10:36)
[2025-04-12 11:16] LABS: ABG BASE EXCESS -0.2 mmol/L (-2.0-3.0); ABG HCO3 23.8 mmol/L (21.0-28.0); ABG OXYGEN SATURATION 98.0 % (94.0-98.0); ABG PCO2 37.2 mmHg (35.0-48.0); ABG PH 7.424 (7.350-7.450); ABG PO2 106.1 mmHg (83.0-108.0); CL (ABG) 105 mmol/L (98-107); FCOHb 0.4 % (0.5-1.5); FHHb 2.0 % (0.0-5.0); FMetHb 0.3 % (0.0-1.5); FO2Hb 97.3 % (94.0-98.0); GLUCOSE (ABG) 116 mg/dl (65-95); IONIZED CA (ABG) 1.19 mmol/L (1.15-1.33); K (ABG) 4.4 mmol/L (3.40-4.50); TOTAL HEMOGLOBIN 15.4 G/dl (13.5-17.5)
[2025-04-12] MEDS ORDERED: sodium bicarbonate (8.4%) 1 mEq/ml syringe ONE (12:00)
[2025-04-12] MEDS ORDERED: albumin (Human) 5% 250ml BOTTLE IV ONE (12:00)
[2025-04-12 12:50] LABS: ACT @ 1.70 U 278 SEC (193-297); ACT @ 2.84 U 343 SEC (260-420); BASELINE ACT 145 SEC (101-148); PATIENT WEIGHT 81.1k KG
[2025-04-12] MEDS ORDERED: isosorbide mononitrate 30mg tab.SR.24H PO SCH ×2 (13:14→15:29)
--- NOTE | 2025-04-12 14:26 | PROCEDURE NOTE - Respiratory ---
Procedure Note-Respiratory Providers to CC Copies To 1: AYAH SAM MD; DELLA FULTON MD Procedure Name: This is a spirometry study dated April 11, 2025. Spirometry measurements: Both the forced vital capacity and the FEV1 are normal. The FEV1 ratio is normal. Some of the flow rates show slight red uction. Bronchodilator was not administered as part of the study. Conclusion: This study shows very mild abnormality. There is evidence for obstructive ventilatory defect although it appears to be quite mild. We have no previous studies for comparison. SVETA TABOR MD Apr 12, 2025 14:26
[2025-04-12 14:30] LABS: ABG BASE EXCESS -0.1 mmol/L (-2.0-3.0); ABG HCO3 24.4 mmol/L (21.0-28.0); ABG OXYGEN SATURATION 99.4 % (94.0-98.0); ABG PCO2 39.1 mmHg (35.0-48.0); ABG PH 7.413 (7.350-7.450); CL (ABG) 104 mmol/L (98-107); FCOHb 0.3 % (0.5-1.5); FHHb 0.6 % (0.0-5.0); FMetHb 0.3 % (0.0-1.5); FO2Hb 98.8 % (94.0-98.0); GLUCOSE (ABG) 104 mg/dl (65-95); IONIZED CA (ABG) 1.01 mmol/L (1.15-1.33); TOTAL HEMOGLOBIN 11.8 G/dl (13.5-17.5)
[2025-04-12 14:41] LABS: ACTIVATED CLOTTING TIME 660.0 SEC (101-148)
[2025-04-12 15:00] LABS: ABG BASE EXCESS -1.1 mmol/L (-2.0-3.0); ABG HCO3 23.6 mmol/L (21.0-28.0); ABG OXYGEN SATURATION 99.5 % (94.0-98.0); ABG PCO2 39.5 mmHg (35.0-48.0); ABG PH 7.395 (7.350-7.450); CL (ABG) 105 mmol/L (98-107); FCOHb 0.2 % (0.5-1.5); FHHb 0.5 % (0.0-5.0); FMetHb 0.3 % (0.0-1.5); FO2Hb 99.0 % (94.0-98.0); GLUCOSE (ABG) 121 mg/dl (65-95); IONIZED CA (ABG) 1.07 mmol/L (1.15-1.33); K (ABG) 5.3 mmol/L (3.40-4.50); TOTAL HEMOGLOBIN 12.6 G/dl (13.5-17.5)
[2025-04-12 15:10] LABS: ACTIVATED CLOTTING TIME 579.0 SEC (101-148)
[2025-04-12 15:30] LABS: ABG BASE EXCESS -2.1 mmol/L (-2.0-3.0); ABG HCO3 22.6 mmol/L (21.0-28.0); ABG OXYGEN SATURATION 99.5 % (94.0-98.0); ABG PCO2 38.6 mmHg (35.0-48.0); ABG PH 7.386 (7.350-7.450); CL (ABG) 105 mmol/L (98-107); FCOHb 0.2 % (0.5-1.5); FHHb 0.5 % (0.0-5.0); FMetHb 0.3 % (0.0-1.5); FO2Hb 99.0 % (94.0-98.0); GLUCOSE (ABG) 130 mg/dl (65-95); IONIZED CA (ABG) 1.07 mmol/L (1.15-1.33); K (ABG) 4.9 mmol/L (3.40-4.50); TOTAL HEMOGLOBIN 12.4 G/dl (13.5-17.5)
[2025-04-12 15:39] LABS: ACTIVATED CLOTTING TIME 499.0 SEC (101-148)
[2025-04-12 16:01] LABS: ABG BASE EXCESS -2.4 mmol/L (-2.0-3.0); ABG HCO3 22.5 mmol/L (21.0-28.0); ABG OXYGEN SATURATION 99.5 % (94.0-98.0); ABG PCO2 39.5 mmHg (35.0-48.0); ABG PH 7.374 (7.350-7.450); CL (ABG) 107 mmol/L (98-107); FCOHb 0.1 % (0.5-1.5); FHHb 0.5 % (0.0-5.0); FMetHb 0.0 % (0.0-1.5); FO2Hb 99.4 % (94.0-98.0); GLUCOSE (ABG) 141 mg/dl (65-95); IONIZED CA (ABG) 1.06 mmol/L (1.15-1.33); K (ABG) 4.8 mmol/L (3.40-4.50); TOTAL HEMOGLOBIN 12.3 G/dl (13.5-17.5)
[2025-04-12] MEDS: vancomycin/NS 1 GM ADD-VANTAGE 250 ML IV ONE (16:01)
[2025-04-12] MEDS: Insulin Reg/NS 100units/100mL 100 ML IV SCH ×2 (16:02→19:03)
[2025-04-12] MEDS: MESSAGE TO PHARMACY IJ ONE (16:02)
[2025-04-12] MEDS ORDERED: NITR0.4T48 SL (16:06)
[2025-04-12 16:12] LABS: ACTIVATED CLOTTING TIME 604.0 SEC (101-148)
[2025-04-12 16:34] LABS: ABG BASE EXCESS -3.4 mmol/L (-2.0-3.0); ABG HCO3 21.5 mmol/L (21.0-28.0); ABG OXYGEN SATURATION 99.4 % (94.0-98.0); ABG PCO2 38.2 mmHg (35.0-48.0); ABG PH 7.369 (7.350-7.450); CL (ABG) 107 mmol/L (98-107); FCOHb 0.2 % (0.5-1.5); FHHb 0.6 % (0.0-5.0); FMetHb 0.0 % (0.0-1.5); FO2Hb 99.2 % (94.0-98.0); GLUCOSE (ABG) 143 mg/dl (65-95); IONIZED CA (ABG) 1.05 mmol/L (1.15-1.33); K (ABG) 4.2 mmol/L (3.40-4.50); TOTAL HEMOGLOBIN 11.7 G/dl (13.5-17.5)
--- NOTE | 2025-04-12 16:37 | PROGRESS NOTE- Residence ---
Progress Note - Resident Providers to CC Resident Creating Document: ALYSSA RAJAN RES CC: NOBLE REIS MD ~ Antibiotic Timeout Antibiotic Ordered?: No Subjective Patient was taken to the operation theater for his cardiac catheterization Objective Vital Signs Date Time Temp Pulse Resp B/P (MAP) Pulse Ox O2 Delivery O2 Flow Rate FiO2 04/12/25 09:45 97.9 61 17 96 04/12/25 08:00 Room Air 04/12/25 07:00 111/70 (84) 04/11/25 17:22 0 21 Result Diagram: 04/12/25 0210 04/12/25 0310 Coagulation Studies Laboratory Tests Test 04/11/25 20:54 04/12/25 03:10 04/12/25 11:22 04/12/25 16:07 Activated Partial Thromboplast Time 50 SECONDS (22-32) H Prothrombin Time 11.0 SECONDS (9.0-12.0) INR International Normalized Ratio 1.1 INR APTT (Heparin Protocol) 41 SECONDS (45-60) L Coagulation Comments Patient Sex (Coag) M Patient Height (Coag) 178cm Patient Weight (Coag) 81.1k KG Patient Blood Volume 5971 ML Pump Volume 1500 ML Total Blood Volume 7471 ML Projected Heparin Concentration 3.2 MG/KG Heparin [place] 77 Calculated Heparin Bolus 95864 UNITS Activated Coagulation Time Baseline 145 SEC (101-148) Activated Coag Time 1.70 U/mL 278 SEC (193-297) Activated Coag Time 2.84 U/mL 343 SEC (260-420) Heparin Level (COAG) 3.5 MG/KG Calculated Heparin Req (Hep Assay) 0 UNITS Calculated Protamine Req (Hep Assay 284 MG Activated Clotting Time 604 SEC (101-148) H Assessment Assessment 64-year-old male patient came to the hospital with chief complaint of chest pain mostly with exertion. Plan Plan Unstable Angina: S/p two stents in 2011 after ACS: Patient initially presented with symptoms of chest pain rated 7/10, radiating to the left arm. No ST-segment changes on EKG. Serial troponins-74,85,75. TAMMY score = 4 intermediate risk Heart score=2 Low score His medications include;aspirin 81 mg daily,atorvastatin 80 mg daily,metoprolol succinate 25 mg daily. 04/11/2025: Lexiscan: Reversible defects suggestive of acute ischemia are present in the anterior wall and septal wall. Subtle reversible defect in the inferior wall may represent artifact versus mild ischemia. Left ventricular ejection fraction is 39%. Echocardiogram: LVEF 50-55%, overall systolic function is mildly reduced, right ventricle is mildly dilated in size with normal function. [employer] and cardiovascular surgeons are involved, and they recommended surgical intervention for this patient due to his multi-vessel CAD involving the left main. Patient will undergo his CABG today Acute kidney injury, possible vasomotor nephropathy, trending down Fractional excretion of sodium 1.3%: Indeterminate. BUN/creatinine ratio 11.5, GFR 60. NS at 50 mL/hour Creatinine today is 1.03 Diabetes mellitus: Patient takes metformin HLC she 500 mg once in the morning and once in the night every day. Current hemoglobin A1c 5.6. Hyper/hypoglycemia protocol in place. Sliding scale short-acting insulin. Hyperlipidemia Continue Evolocumab injection 140 mg every other week per Dr. Treadwell Fenofibrate 160 mg daily p.m.. Hypothyroidism Continue levothyroxine 50 mcg daily. Acute Stress disorder Work related stress Continued sertraline 25 mg Q 48 H. Code status: Full code DVT prophylaxis: Heparin Analgesia/sedation: [place] /morphine Line/tube: PIV GI prophylaxis: None Nutrition: NPO PT: Ordered Prognosis: Guarded Disposition: Patient will undergo his CABG today. Alyssa Rajan,PGY-1 Internal Medicine Resident Date of Service: Apr 12, 2025 Billing Provider: NOBLE REIS MD, JAHNAVI, RES Apr 12, 2025 16:37
[2025-04-12 16:44] LABS: ACTIVATED CLOTTING TIME 519.0 SEC (101-148)
[2025-04-12 17:14] LABS: ABG BASE EXCESS -1.8 mmol/L (-2.0-3.0); ABG HCO3 23.9 mmol/L (21.0-28.0); ABG PCO2 44.3 mmHg (35.0-48.0); ABG PH 7.349 (7.350-7.450); CL (ABG) 107 mmol/L (98-107); FCOHb 0.4 % (0.5-1.5); FHHb 20.5 % (0.0-5.0); FMetHb 0.0 % (0.0-1.5); FO2Hb 79.1 % (94.0-98.0); GLUCOSE (ABG) 129 mg/dl (65-95); IONIZED CA (ABG) 1.20 mmol/L (1.15-1.33); K (ABG) 3.7 mmol/L (3.40-4.50); TOTAL HEMOGLOBIN 10.7 G/dl (13.5-17.5)
[2025-04-12 17:16] LABS: ACTIVATED CLOTTING TIME 123 SEC (101-148)
[2025-04-12] MEDS ORDERED: sodium phosphate inj. 15 MMOL in dextrose 5%-water 250 ML IV PRN (18:35)
[2025-04-12] MEDS ORDERED: potassium Cl 40MEQ/270ML bag 250 ML IV PRN (18:35)
[2025-04-12] MEDS ORDERED: magnesium hydroxide 30ml (MOM) UD suspension PO PRN (18:35)
[2025-04-12] MEDS ORDERED: potassium Cl 40MEQ/1/2NS 520ml 520 ML IV PRN (18:35)
[2025-04-12] MEDS ORDERED: dextrose 50%-water 50ml dispensing syringe IV PRN (18:35)
[2025-04-12] MEDS ORDERED: magnesium sulf-water 4G/100mL 100 ML IV PRN (18:35)
[2025-04-12] MEDS ORDERED: normal saline 250ml IV soln 250 ML IV PRN (18:35)
[2025-04-12] MEDS ORDERED: insulin glargine (Lantus) pen - multi-dose SQ PRN (18:35)
[2025-04-12] MEDS ORDERED: nitroGLYCERIN-Tridil 50MG/D5W 250 ML IV PRN (18:35)
[2025-04-12] MEDS ORDERED: metoclopramide 5 mg/ml inj IV PRN (18:35)
[2025-04-12] MEDS ORDERED: mineral oil 133ml enema RC PRN (18:35)
[2025-04-12] MEDS ORDERED: ondansetron/PF 4mg/2ml inj IV PRN (18:35)
[2025-04-12] MEDS ORDERED: DOBUTamine-DoBUTrex 500mg/D5W 250 ML IV PRN (18:35)
[2025-04-12] MEDS ORDERED: potassium Cl 20 mEq SR tablet PO PRN (18:35)
[2025-04-12] MEDS ORDERED: potassium CL 10mEq/100ml bag 100 ML IV PRN (18:35)
[2025-04-12] MEDS ORDERED: sodium phosphate inj. 30 MMOL in dextrose 5%-water 250 ML IV PRN (18:35)
[2025-04-12] MEDS ORDERED: HYDROcodone/acetaminophen 10/325mg tab PO PRN ×2 (18:35)
[2025-04-12] MEDS ORDERED: bisacodyl 10mg suppository rectal RC PRN (18:35)
[2025-04-12 18:56] LABS: ABG BASE EXCESS -2.4 mmol/L (-2.0-3.0); ABG HCO3 21.8 mmol/L (21.0-28.0); ABG OXYGEN SATURATION 95.7 % (94.0-98.0); ABG PCO2 (T) 33.5 mmHg (35.0-48.0); ABG PH (T) 7.425 (7.350-7.450); ABG PO2 (T) 74.2 mmHg (83.0-108.0); FCOHb 1.0 % (0.5-1.5); FHHb 4.2 % (0.0-5.0); FIO2 80.0 mmHg/%; FMetHb 0.3 % (0.0-1.5); FO2Hb 94.5 % (94.0-98.0); MODE VENT - SIMV; PATIENT TEMPERATURE 35.5; PEEP 5 cm H2O; RESPIRATORY RATE 14 b/min; TIDAL VOLUME 500 mL; TOTAL HEMOGLOBIN 12.0 G/dl (13.5-17.5)
[2025-04-12 18:59] LABS: MEAN PLATELET VOLUME 8.5 FL (7.4-10.4); RED CELL DISTRIBUTION WIDTH 13.2 % (11.5-14.5)
[2025-04-12] MEDS: albumin (Human) 5% 250ml 250 ML IV PRN (18:59)
--- NOTE | 2025-04-12 19:00 | RADIOLOGY REPORT ---
CHEST RADIOGRAPH REASON FOR EXAM: STAT Post Op PCXR for CABG COMPARISON: DI CHEST,SINGLE VIEW on DOS: 04/10/25 TECHNIQUE: One view of the chest is provided FINDINGS: The cardiomediastinal silhouette is stable. The endotracheal tube terminates approximately 5.3 cm from the avi. A Butler-Aren catheter tip projects over the right main pulmonary artery. A ri ght neck catheter tip projects over the lower SVC. There is an enteric tube with the tip and side hol e projecting over the area of the stomach. Surgical drains project over the mediastinum and left payton diaphragm. Low inspiratory volumes cause crowding and exaggeration of the pulmonary markings. There i s small left pleural effusion. There is no pneumothorax. IMPRESSION: Low inspiratory volumes. Lines and tubes as described above. No pneumothorax. Small left pleural effusion.
--- NOTE | 2025-04-12 19:09 | OPERATIVE REPORT ---
Operative Report Providers to CC ~ Date of Procedure: Apr 15, 2025 Pre-Operative Diagnosis: Unstable angina Post-Operative Diagnosis angina, CAD Procedure Performed SHARMA to LAD, sequential SVG to rPDA- Circ. Endoscopic vein harvest Surgeon: Gale Grossman Anesthesiologist: Herb Santos Type of Anesthesia: General, Other Findings: CAD Complications none Estimated Blood Loss: NA Specimen Removed: no Description of Procedure: dict #[id number] Counts repoted as correct: Yes AYAH SAM MD Apr 12, 2025 19:09
--- NOTE | 2025-04-12 19:12 | CARDIOLOGY REPORT ---
APPROVED REPORT EXAM: Intraoperative transesophageal 2D and color flow Doppler echocardiogram. Study contains pre- a nd post-op images. Patient Location: [facility] Blood Pressure: 98/55 mmHg Heart Rate: 84 bpm Rhythm: SINUS Indications CORONARY ARTERY DISEASE CABG X 4 STENTS X2 2012 (RCA) Crime Specialist: Too Treadwell MD / CV Surgeon: Too Beasley MD PETER probe passed by: David Santos MD Previous echo: 04/11/25 [facility] (EF 50-55%, trivial AI, trace MR, trace TR) LEFT VENTRICLE PRE: Normal LV size and wall thickness. Overall systolic function is moderately reduced. LVEF is 40-4 5%. POST: LVEF appears significantly improved to 65-70%. RIGHT VENTRICLE PRE: RV is normal size and function. POST: Unchanged. ATRIA PRE: LA size is normal. Left atrial appendage is visualized in multiple planes and appears normal wit hout debris. Left upper pulmonary vein identified and isolated by 2D and color Doppler. POST: Unchang ed. AORTIC VALVE PRE: Trileaflet AV appears mildly sclerotic without stenosis. Trivial insufficiency. POST: Unchanged. MITRAL VALVE PRE: Mild MV annular calcification without stenosis. Trace regurgitation. POST: Unchanged. TRICUSPID VALVE PRE: TV appears structurally normal with trace regurgitation. POST: Unchanged. PULMONIC VALVE PRE: Normal PV without stenosis, physiologic insufficiency. [place]-Aren catheter in the right heart acr oss the pulmonic valve. POST: Unchanged. GREAT VESSELS PRE: Aortic root is normal in size. POST: Unchanged. PERICARDIUM PRE: Normal pericardium. No effusion. POST: Unchanged. CONCLUSION PRE: Normal LV size and wall thickness. Overall systolic function is moderately reduced. LVEF is 40-4 5%. POST: LVEF appears significantly improved to 65-70%. PRE: RV is normal size and function. POST: U nchanged. PRE: LA size is normal. Left atrial appendage is visualized in multiple planes and appears normal without debris. Left upper pulmonary vein identified and isolated by 2D and color Doppler. POS T: Unchanged. PRE: Trileaflet AV appears mildly sclerotic without stenosis. Trivial insufficiency. PO ST: Unchanged. PRE: Mild MV annular calcification without stenosis. Trace regurgitation. POST: Unchan ged. PRE: TV appears structurally normal with trace regurgitation. POST: Unchanged. PRE: Normal peric ardium. No effusion. POST: Unchanged. Conclusion PRE: Normal LV size and wall thickness. Overall systolic function is moderately reduced. LVEF is 40-4 5%. POST: LVEF appears significantly improved to 65-70%. PRE: RV is normal size and function. POST: Unchanged. PRE: LA size is normal. Left atrial appendage is visualized in multiple planes and appears normal wit hout debris. Left upper pulmonary vein identified and isolated by 2D and color Doppler. POST: Unchang ed. PRE: Trileaflet AV appears mildly sclerotic without stenosis. Trivial insufficiency. POST: Unchanged. PRE: Mild MV annular calcification without stenosis. Trace regurgitation. POST: Unchanged. PRE: TV appears structurally normal with trace regurgitation. POST: Unchanged. PRE: Normal pericardium. No effusion. POST: Unchanged.
[2025-04-12 19:14] LABS: CREATININE 1.06 MG/DL (0.60-1.10); PHOSPHORUS 3.4 MG/DL (2.3-4.5); TOTAL CARBON DIOXIDE 24.1 MMOL/L (24-32); eCRCL 67 ML/MIN; eGFR 71 ML/MIN
[2025-04-12] MEDS: magnesium sulf-water 2g/50mL 50 ML IV PRN (19:17)
[2025-04-12] MEDS: niCARDipine-NS 40mg/200ml IVPB 200 ML IV ONE (19:31)
[2025-04-12 19:34] LABS: APTT 27 SECONDS (22-32); INR 1.3 INR
[2025-04-12] MEDS: niCARDipine-NS 40mg/200ml IVPB 200 ML IV SCH (19:34)
[2025-04-12] MEDS: potassium Cl 20mEq/100mL bag 100 ML IV PRN (19:48)
[2025-04-12] MEDS: dexmedetomidin/NS 400mcg/100ml 100 ML IV SCH (19:49)
--- NOTE | 2025-04-12 19:51 | OPERATIVE REPORT ---
DATE OF SURGERY: 04/12/2025 DICTATING PHYSICIAN: Tarik Beasley MD PREOPERATIVE DIAGNOSES: * Coronary artery disease. * Hypertension. * Unstable angina. POSTOPERATIVE DIAGNOSES: * Coronary artery disease. * Hypertension. * Unstable angina. PROCEDURES PERFORMED: * Coronary artery bypass grafting with SHARMA to LAD, sequential saphenous vein graft to RPDA and circumflex, and saphenous vein graft to diagonal branch. * Endoscopic vein harvesting. SURGEON: Tarik Beasley MD INCOME TAX ADJUSTER: Isidro Grossman MD ANESTHESIOLOGIST: Dr. Santos. ANESTHETIC: General plus local. DRAINS: A 32-Tamazight right-angle chest tube into the left pleural space, 24-Tamazight Miguel into the pericardial well, and a 28-Tamazight anterior mediastinal chest tube. COMPLICATIONS: None. DESCRIPTION OF THE PROCEDURE: The patient was taken to the operating room and placed on the table in the supine position. After anesthesia was induced, the legs, groins, and chest were prepped and draped in the usual sterile fashion. Next, a timeout was called. The patient was correctly identified by the surgeon and the OR staff. Next, an incision was made in the midline of the chest and carried out down to the sternum. The sternum was divided in the midline and hemostasis was obtained along the sternal edges. The ANA was identified and taken down on the pedicle. Simultaneous endoscopic vein harvesting commenced. Full heparin dose was given prior to distal division of the ANA. The ANA was injected with 3 mL of papaverine and wrapped in a papaverine-soaked sponge. The pericardium was opened and tacked with stay sutures. Palpation of the ascending aorta revealed no dense plaques. The intraoperative transesophageal echocardiogram demonstrated somewhat depressed ejection fraction of 40%-45% with no wall motion or valvular abnormalities. Cannulation proceeded in the standard fashion. The aortic cannula placed in the distal ascending aorta and the venous cannula placed into the right atrium. We then commenced with cardiopulmonary bypass and cooling. A root vent was placed followed by a retrograde cardioplegia catheter into the coronary sinus. Once the target temperature was reached, a cross-clamp was applied and the patient was administered both antegrade and retrograde cardioplegia. Topical ice was used throughout the case. Next, the vein graft had been inspected. We did note multiple lacerations and areas of thinned out wall of the vein likely during the harvesting period. Apparently, this greater saphenous vein was very superficial, which made the harvesting quite difficult. I did take time to close the tears with 7-0 Prolene interrupted sutures. I also used fat pledgets on some of the areas where bites could not be taken too deep. Once we had a satisfactory repair of the defects in the harvested saphenous vein, we began with the anastomosis. I first performed an end-to-side anastomosis with vein graft to the mid portion of the RPDA. I then sequentially vein grafted [id number] to the circumflex artery. Next, attention was turned to the diagonal branch. This was a fairly large vessel that bifurcated it. I opened it just proximal to the bifurcation. I then performed an end-to-side anastomosis with a 7-0 Prolene in running fashion. Next, the LAD was opened at its distal third segment. I then performed the SHARMA to LAD anastomosis with a 7-0 Prolene in a running fashion. I used a 5-0 Prolene to tack the pedicle to the epicardium. At this point, we began warming and attention was turned to the proximal anastomosis. Of note, the cardioplegia was used every 15 to 20 minutes throughout the case. We also used cardioplegia down the vein grafts. Both proximal anastomoses were performed after making a 4-0 punch. I used 6-0 Prolene for both proximals. We administered hot-shot while venting the ascending aorta and the cross-clamp was removed. We noted spontaneous return of sinus rhythm. The retrograde cardioplegia catheter was removed. Once we reached normothermia, we from cardiopulmonary bypass with minimal inotropic support. Other venous cannula and root vents were removed. Initial survey of surgical sites revealed good hemostasis. We returned an appropriate amount of volume through the aortic cannula and it too was then removed. The patient was administered protamine and tolerated it well. I was able to demonstrate brisk diastolic flow in all grafts. The chest tubes were placed into the positions as described above. The sternal edges were approximated with wires followed by a 3-layer chest wall closure. All of the instruments were accounted for at the end of the case. The patient tolerated the procedure well and was taken to the ICU in stable condition. Tarik Beasley MD TID: [id number] RECEIPT: [id number] TEGAN/DUANE
[2025-04-12] MEDS: morphine 4 MG/ML inj SYRINge IV PRN (19:52)
[2025-04-12] MEDS: vancomycin/NS 1 GM ADD-VANTAGE 250 ML IV SCH (19:59)
[2025-04-12] MEDS ORDERED: mupirocin 2% nasal ointment 1gm UD NS SCH (20:00)
[2025-04-12 20:48] LABS: MEAN PLATELET VOLUME 8.3 FL (7.4-10.4); RED CELL DISTRIBUTION WIDTH 13.1 % (11.5-14.5)
[2025-04-12 20:57] LABS: CREATININE 1.10 MG/DL (0.60-1.10); TOTAL CARBON DIOXIDE 22.1 MMOL/L (24-32); eCRCL 64 ML/MIN; eGFR 68 ML/MIN
[2025-04-12] MEDS: protamine sulf. 10mg/ml inj. IV STA (21:03)
[2025-04-12 22:16] LABS: MEAN PLATELET VOLUME 8.6 FL (7.4-10.4); RED CELL DISTRIBUTION WIDTH 13.2 % (11.5-14.5)
[2025-04-12] MEDS: ceFAZolin/D5W- 1GM premix 50 ML IV SCH (23:43)
[2025-04-13] VITALS (30 sets, daily range): BP systolic 99–175; BP diastolic 57–82; PULSE 78–91; RESP 14–31; O2SAT 91–98
[2025-04-13] MEDS: ondansetron/PF 4mg/2ml inj IV PRN (00:31)
[2025-04-13 00:35] LABS: MEAN PLATELET VOLUME 8.9 FL (7.4-10.4); RED CELL DISTRIBUTION WIDTH 12.9 % (11.5-14.5)
[2025-04-13 00:48] LABS: APTT 27 SECONDS (22-32); INR 1.2 INR
[2025-04-13 00:58] LABS: CREATININE 1.33 MG/DL (0.60-1.10); PHOSPHORUS 2.8 MG/DL (2.3-4.5); TOTAL CARBON DIOXIDE 22.6 MMOL/L (24-32); eCRCL 53 ML/MIN; eGFR 54 ML/MIN
[2025-04-13 01:12] LABS: ABG BASE EXCESS -3.3 mmol/L (-2.0-3.0); ABG HCO3 21.0 mmol/L (21.0-28.0); ABG OXYGEN SATURATION 93.9 % (94.0-98.0); ABG PCO2 (T) 34.4 mmHg (35.0-48.0); ABG PH (T) 7.401 (7.350-7.450); ABG PO2 (T) 71.5 mmHg (83.0-108.0); FCOHb 0.5 % (0.5-1.5); FHHb 6.1 % (0.0-5.0); FIO2 40.0 mmHg/%; FMetHb 0.3 % (0.0-1.5); FO2Hb 93.1 % (94.0-98.0); MODE VENT - CPAP; PATIENT TEMPERATURE 36.9; PEEP 5 cm H2O; TOTAL HEMOGLOBIN 10.1 G/dl (13.5-17.5)
--- NOTE | 2025-04-13 06:15 | RADIOLOGY REPORT ---
CHEST RADIOGRAPH Indication: POST OP Technique: Single frontal view of the chest was obtained COMPARISON: DI CHEST,SINGLE VIEW on DOS: 04/12/25, DI CHEST,SINGLE VIEW on DOS: 04/10/25 FINDINGS: Lines and Tubes: Status post interval extubation and removal of enteric catheter. Remaining lines and tubes are unchanged. Lungs: Stable appearing left pleural effusion and basilar pulmonary airspace disease. No pneumothorax. Cardiomediastinal contours: Unremarkable status post median sternotomy. Bones: Unremarkable IMPRESSION: 1. Stable left pleural effusion and basilar pulmonary airspace disease. 2. Status post interval extubation and removal of enteric catheter. Remaining lines and tubes unchan ged.
[2025-04-13] MEDS ORDERED: saliva stimulant agent 45ml spray MM PRN (07:40)
[2025-04-13] MEDS ORDERED: Chloraseptic (Phenol) Spray 177ml MM PRN (07:40)
--- NOTE | 2025-04-13 07:53 | PROGRESS NOTE ---
Progress Note CV Providers to CC ~ Progress Note: s/p cabg X4 04/11/2025 Antibiotics Ordered?: Yes Subjective Subjective "sore" Objective Vitals Vital Signs Date Time Temp Pulse Resp B/P (MAP) Pulse Ox O2 Delivery O2 Flow Rate FiO2 04/13/25 07:09 97.2 80 19 110/63 (78) 98 Nasal Cannula 4.0 04/13/25 03:42 36 Lab Results: 04/13/25 0012 04/13/25 0012 Objective chest tubes - minimal output uop- excellent CXR - mild generalized atelectasis noted PA: 26/8 CI: 2.0 Awake and alert - up in chair Neuro: Intact Lungs: shallow respirations Sat 94% on 4L Cor: RRR Tele- NSR Abd: soft nt/nt Ext: mild edema and well perfused x4 JAMI to bilat LE Incision: covered, clean and dry Coagulation Studies Laboratory Tests Test 04/12/25 03:10 04/12/25 11:22 04/12/25 17:20 04/12/25 20:45 APTT (Heparin Protocol) 41 SECONDS (45-60) L Patient Sex (Coag) M Patient Height (Coag) 178cm Patient Weight (Coag) 81.1k KG Patient Blood Volume 5971 ML Pump Volume 1500 ML Total Blood Volume 7471 ML Projected Heparin Concentration 3.2 MG/KG Heparin [place] 77 Calculated Heparin Bolus 68870 UNITS Activated Coagulation Time Baseline 145 SEC (101-148) Activated Coag Time 1.70 U/mL 278 SEC (193-297) Activated Coag Time 2.84 U/mL 343 SEC (260-420) Heparin Level (COAG) 0 MG/KG Calculated Heparin Req (Hep Assay) 14248 UNITS Calculated Protamine Req (Hep Assay 0 MG Activated Clotting Time 129 SEC (101-148) Test 04/13/25 00:12 Prothrombin Time 12.4 SECONDS (9.0-12.0) H INR International Normalized Ratio 1.2 INR Activated Partial Thromboplast Time 27 SECONDS (22-32) Fibrinogen 231 MG/DL (177-424) Coagulation Comments Coagulation Clinical Comments Cardiac Rhythm: Sinus Rhythm Problem\\Assessment\\Plan Problems/Diagnosis: (1) S/P CABG x 4 Assessment & Plan: POd #1 dong well was extubated in routine fashion not bleeding hemodynamics good requiring no inotropes or pressors creatinine slightly elevated - will monitor otherwise labs and cxr satisfactory Continue routine post-op care ROCCO GOMEZ Apr 13, 2025 07:53
[2025-04-13 08:05] LABS: ABG PO2 453.4 mmHg (83.0-108.0); K (ABG) 6.1 mmol/L (3.40-4.50)
[2025-04-13 08:06] LABS: ABG PO2 450.5 mmHg (83.0-108.0)
[2025-04-13 08:06] LABS: ABG PO2 454.1 mmHg (83.0-108.0)
[2025-04-13 08:06] LABS: ABG PO2 410.7 mmHg (83.0-108.0)
[2025-04-13 08:07] LABS: ABG PO2 45.3 mmHg (83.0-108.0)
[2025-04-13 08:07] LABS: ABG PO2 369.8 mmHg (83.0-108.0)
[2025-04-13 08:08] LABS: ABG OXYGEN SATURATION 79.4 % (94.0-98.0)
[2025-04-13] MEDS: acetaminophen 1,000mg/100ml IV 100 ML IV SCH (08:23)
--- NOTE | 2025-04-13 08:49 | ELECTROCARDIOGRAPH REPORT ---
[facility] Test Date: 2025-04-12 Test Time: 18:39:28 Pat Name: PARVEZ TRAVIS Department: 2ND FLOOR Room: [facility] 2008 A Gender: M Community Service Coordinator: : 1960 Requested By: ROCCO GOMEZ Order Number: [id number] Reading MD: Dr. JOSE GUADALUPE Raygoza Measurements Intervals [place] Rate: 75 P: 81 KS: 199 QRS: 63 QRSD: 100 T: 48 QT: 402 QTc: 449 Interpretive Statements Age not entered, assumed to be 51 years old for purpose of ECG interpretation Sinus rhythm Borderline low voltage, extremity leads Electronically Signed On 04-13-2025 19:52:[address] JOSE GUADALUPE Raygoza Please click the below link to view image of tracing.
[2025-04-13 09:08] LABS: MEAN PLATELET VOLUME 9.5 FL (7.4-10.4); RED CELL DISTRIBUTION WIDTH 13.0 % (11.5-14.5)
[2025-04-13 09:14] LABS: CREATININE 1.16 MG/DL (0.60-1.10); PHOSPHORUS 3.5 MG/DL (2.3-4.5); TOTAL CARBON DIOXIDE 23.7 MMOL/L (24-32); eCRCL 61 ML/MIN; eGFR 64 ML/MIN
[2025-04-13] MEDS ORDERED: FENOFIBRATE 160 MG TABLET PO SCH (09:50)
[2025-04-13] MEDS: HYDROcodone/acetaminophen 10/325mg tab PO PRN (12:19)
[2025-04-13] MEDS: FENOFIBRATE 160 MG TABLET PO SCH (20:53)
[2025-04-14] VITALS (24 sets, daily range): BP systolic 106–179; BP diastolic 57–86; PULSE 75–103; RESP 12–28; O2SAT 93–98
[2025-04-14 02:57] LABS: MEAN PLATELET VOLUME 9.4 FL (7.4-10.4); RED CELL DISTRIBUTION WIDTH 13.2 % (11.5-14.5)
[2025-04-14 03:06] LABS: INR 1.2 INR
[2025-04-14 03:14] LABS: CREATININE 0.93 MG/DL (0.60-1.10); PHOSPHORUS 2.6 MG/DL (2.3-4.5); TOTAL CARBON DIOXIDE 26.7 MMOL/L (24-32); eCRCL 76 ML/MIN; eGFR 82 ML/MIN
--- NOTE | 2025-04-14 06:51 | RADIOLOGY REPORT ---
CHEST RADIOGRAPH Indication: POST OP Technique: Single frontal view of the chest was obtained COMPARISON: DI CHEST,SINGLE VIEW on DOS: 04/13/25, DI CHEST,SINGLE VIEW on DOS: 04/12/25, DI CHEST,SING LE VIEW on DOS: 04/10/25 FINDINGS: Lines and Tubes: Unchanged. Lungs: Small residual bilateral pleural effusions and left middle and lower lung zone pulmonary airsp [place] disease. No pneumothorax. Cardiomediastinal contours: Unremarkable Bones: Unremarkable IMPRESSION: 1. Small residual bilateral pleural effusions and left middle and lower lung zone pulmonary airspace disease. 2. Lines and tubes unchanged.
[2025-04-14] MEDS: pantoprazole 40mg Tablet.DR PO SCH (07:54)
--- NOTE | 2025-04-14 08:16 | PROGRESS NOTE ---
Progress Note CV Providers to CC ~ Antibiotics Ordered?: No Subjective Subjective S/P CABG x 4 POD # 2. Awake alert, says pain has been pretty well managed. Walked well yesterday. Not on any gtts. Objective Vitals Vital Signs Date Time Temp Pulse Resp B/P (MAP) Pulse Ox O2 Delivery O2 Flow Rate FiO2 04/14/25 06:01 98.2 78 19 143/82 (102) 96 Nasal Cannula 2.0 04/13/25 20:00 44 Lab Results: 04/14/25 0240 04/14/25 0240 Objective Lungs - a bit diminished L base, CXR OK Heart - RRR, SR Abd/Extr - OK Incisions - CDI Coagulation Studies Laboratory Tests Test 04/12/25 03:10 04/12/25 11:22 04/12/25 17:20 04/12/25 20:45 APTT (Heparin Protocol) 41 SECONDS (45-60) L Patient Sex (Coag) M Patient Height (Coag) 178cm Patient Weight (Coag) 81.1k KG Patient Blood Volume 5971 ML Pump Volume 1500 ML Total Blood Volume 7471 ML Projected Heparin Concentration 3.2 MG/KG Heparin [place] 77 Calculated Heparin Bolus 96057 UNITS Activated Coagulation Time Baseline 145 SEC (101-148) Activated Coag Time 1.70 U/mL 278 SEC (193-297) Activated Coag Time 2.84 U/mL 343 SEC (260-420) Heparin Level (COAG) 0 MG/KG Calculated Heparin Req (Hep Assay) 20104 UNITS Calculated Protamine Req (Hep Assay 0 MG Activated Clotting Time 129 SEC (101-148) Test 04/13/25 00:12 04/14/25 02:40 Activated Partial Thromboplast Time 27 SECONDS (22-32) Fibrinogen 231 MG/DL (177-424) Coagulation Clinical Comments Prothrombin Time 12.4 SECONDS (9.0-12.0) H INR International Normalized Ratio 1.2 INR Coagulation Comments Cardiac Rhythm: Sinus Rhythm Problem\Assessment\Plan Additional Plan POD # [address] output minimal and serous overnight. DC drains and PW. BP uptrending. Will increase B vinay. To PCU Sepsis Screening Reassessment Date: Apr 14, 2025 Supervising Co-signing Provider: VERONICA Gastelum Apr 14, 2025 08:16
[2025-04-14] MEDS ORDERED: potassium Cl 40MEQ/270ML bag 250 ML IV PRN (08:20)
[2025-04-14] MEDS ORDERED: potassium Cl 40MEQ/1/2NS 520ml 520 ML IV PRN (08:20)
[2025-04-14] MEDS ORDERED: potassium CL 10mEq/100ml bag 100 ML IV PRN (08:20)
[2025-04-14] MEDS ORDERED: potassium Cl 20 mEq SR tablet PO PRN (08:20)
[2025-04-14] MEDS ORDERED: magnesium sulf-water 4G/100mL 100 ML IV PRN (08:20)
[2025-04-14] MEDS ORDERED: potassium Cl 20mEq/100mL bag 100 ML IV PRN (08:20)
[2025-04-14] MEDS: potassium Cl 20 mEq SR tablet PO PRN (08:35)
[2025-04-14] MEDS: INSULIN LISPRO 100 UNIT/ML INSULN.PEN MULTI-DOSE SQ SCH (12:00)
[2025-04-14] MEDS: magnesium Cl slow-release 64mg tablet PO SCH (19:39)
[2025-04-15] VITALS (17 sets, daily range): BP systolic 105–148; BP diastolic 60–92; PULSE 75–92; RESP 14–29; TEMP 98–98.3; O2SAT 94–98
[2025-04-15 02:16] LABS: MEAN PLATELET VOLUME 9.5 FL (7.4-10.4); RED CELL DISTRIBUTION WIDTH 13.3 % (11.5-14.5)
[2025-04-15 02:27] LABS: CREATININE 0.89 MG/DL (0.60-1.10); TOTAL CARBON DIOXIDE 30.0 MMOL/L (24-32); eCRCL 79 ML/MIN; eGFR 86 ML/MIN
[2025-04-15] MEDS: magnesium sulf-water 2g/50mL 50 ML IV PRN (04:06)
--- NOTE | 2025-04-15 08:12 | PROGRESS NOTE ---
Progress Note CV Providers to CC ~ Antibiotics Ordered?: No Subjective Subjective S/P CABG x 4 POD # 3. Alert, up to chair. Feels great this morning he says. Walked well yesterday. No room on PCU yesterday. Objective Vitals Vital Signs Date Time Temp Pulse Resp B/P (MAP) Pulse Ox O2 Delivery O2 Flow Rate FiO2 04/15/25 07:56 88 04/15/25 07:00 97.5 25 146/91 (109) 97 Nasal Cannula 2.0 04/15/25 06:45 92 Lab Results: 04/15/25 0125 04/15/25 0125 Objective Lungs - fairly clear Heart - RRR, SR Abd/Extr - OK, 1+ edema LLE Incisions - dsgs CDI Coagulation Studies Laboratory Tests Test 04/12/25 03:10 04/12/25 11:22 04/12/25 17:20 04/12/25 20:45 APTT (Heparin Protocol) 41 SECONDS (45-60) L Patient Sex (Coag) M Patient Height (Coag) 178cm Patient Weight (Coag) 81.1k KG Patient Blood Volume 5971 ML Pump Volume 1500 ML Total Blood Volume 7471 ML Projected Heparin Concentration 3.2 MG/KG Heparin [place] 77 Calculated Heparin Bolus 15012 UNITS Activated Coagulation Time Baseline 145 SEC (101-148) Activated Coag Time 1.70 U/mL 278 SEC (193-297) Activated Coag Time 2.84 U/mL 343 SEC (260-420) Heparin Level (COAG) 0 MG/KG Calculated Heparin Req (Hep Assay) 51271 UNITS Calculated Protamine Req (Hep Assay 0 MG Activated Clotting Time 129 SEC (101-148) Test 04/13/25 00:12 04/14/25 02:40 Activated Partial Thromboplast Time 27 SECONDS (22-32) Fibrinogen 231 MG/DL (177-424) Coagulation Clinical Comments Prothrombin Time 12.4 SECONDS (9.0-12.0) H INR International Normalized Ratio 1.2 INR Coagulation Comments Cardiac Rhythm: Sinus Rhythm Problem\Assessment\Plan Additional Plan POD # 3 SR Htn, uptitrate B vinay. Continue rehab. Wean O2 as able. To PCU. Home likely soon. Sepsis Screening Reassessment Date: Apr 15, 2025 Supervising Co-signing Provider: VERONICA Gastelum Apr 15, 2025 08:12
[2025-04-16 02:00] VITALS: BP 108/84; PULSE 80; RESP 18; TEMP 98.5; O2SAT 95
[2025-04-16] MEDS: acetaminophen 1,000mg/100ml IV 100 ML IV SCH (04:23)
[2025-04-16 06:00] VITALS: BP 121/85; PULSE 79; RESP 16; TEMP 98.5; O2SAT 97
--- NOTE | 2025-04-16 06:20 | RADIOLOGY REPORT ---
EXAM: DI CHEST,SINGLE VIEW Indication: post op cabg Technique: Single frontal view of the chest was obtained Comparison: DI CHEST,SINGLE VIEW on DOS: 04/14/25, DI CHEST,SINGLE VIEW on DOS: 04/13/25, DI CHEST,SING LE VIEW on DOS: 04/12/25, DI CHEST,SINGLE VIEW on DOS: 04/10/25 FINDINGS: Lines and Tubes: None Lungs: No focal consolidation. Pleura: No effusion. No pneumothorax. Cardiomediastinal contours: Cardiomegaly. Bones: No acute osseous abnormality. IMPRESSION: Cardiomegaly. Trace left pleural effusion.
[2025-04-16 06:54] LABS: MEAN PLATELET VOLUME 9.4 FL (7.4-10.4); RED CELL DISTRIBUTION WIDTH 13.0 % (11.5-14.5)
[2025-04-16 07:10] LABS: CREATININE 1.06 MG/DL (0.60-1.10); TOTAL CARBON DIOXIDE 25.1 MMOL/L (24-32); eCRCL 67 ML/MIN; eGFR 71 ML/MIN
[2025-04-16 11:00] VITALS: BP 130/85; PULSE 76; RESP 14; TEMP 97.7; O2SAT 94
--- NOTE | 2025-04-16 11:57 | PROGRESS NOTE ---
Progress Note CV Providers to CC ~ Central Line/PICC still needed: N\A Antibiotics Ordered?: No MRSA Education MRSA Education Provided: N/A Subjective Subjective Ambulating, tolerating po, pain well controlled. Objective Vitals Vital Signs Date Time Temp Pulse Resp B/P (MAP) Pulse Ox O2 Delivery O2 Flow Rate FiO2 04/16/25 06:30 75 04/16/25 06:00 98.5 16 121/85 (97) 97 Room Air 04/16/25 02:00 3.0 04/15/25 20:00 21 Lab Results: 04/16/25 0616 04/16/25 0616 Objective Neuro: no deficits Chest: incision dry, sternum stable Heart: RRR Ext: warm, trace edema Coagulation Studies Laboratory Tests Test 04/12/25 03:10 04/12/25 11:22 04/12/25 17:20 04/12/25 20:45 APTT (Heparin Protocol) 41 SECONDS (45-60) L Patient Sex (Coag) M Patient Height (Coag) 178cm Patient Weight (Coag) 81.1k KG Patient Blood Volume 5971 ML Pump Volume 1500 ML Total Blood Volume 7471 ML Projected Heparin Concentration 3.2 MG/KG Heparin [place] 77 Calculated Heparin Bolus 83807 UNITS Activated Coagulation Time Baseline 145 SEC (101-148) Activated Coag Time 1.70 U/mL 278 SEC (193-297) Activated Coag Time 2.84 U/mL 343 SEC (260-420) Heparin Level (COAG) 0 MG/KG Calculated Heparin Req (Hep Assay) 13983 UNITS Calculated Protamine Req (Hep Assay 0 MG Activated Clotting Time 129 SEC (101-148) Test 04/13/25 00:12 04/14/25 02:40 Activated Partial Thromboplast Time 27 SECONDS (22-32) Fibrinogen 231 MG/DL (177-424) Coagulation Clinical Comments Prothrombin Time 12.4 SECONDS (9.0-12.0) H INR International Normalized Ratio 1.2 INR Coagulation Comments Cardiac Rhythm: Sinus Rhythm Problem\Assessment\Plan Additional Plan POD4 CABG x4, stable. Ambulate Likely dc to home in am AYAH SAM MD Apr 16, 2025 11:57
[2025-04-16 18:00] VITALS: BP 127/84; PULSE 84; RESP 14; TEMP 98.2; O2SAT 95
[2025-04-16 20:00] VITALS: RESP 20; O2SAT 97
[2025-04-16 22:00] VITALS: BP 117/78; PULSE 82; RESP 16; TEMP 98.5; O2SAT 96
[2025-04-17 02:00] VITALS: BP 121/80; PULSE 78; RESP 18; TEMP 97.9; O2SAT 98
[2025-04-17 05:53] LABS: MEAN PLATELET VOLUME 8.9 FL (7.4-10.4); RED CELL DISTRIBUTION WIDTH 13.2 % (11.5-14.5)
[2025-04-17 06:00] VITALS: BP 99/67; PULSE 82; RESP 16; TEMP 97.9; O2SAT 96
[2025-04-17 06:08] LABS: CREATININE 0.98 MG/DL (0.60-1.10); TOTAL CARBON DIOXIDE 24.3 MMOL/L (24-32); eCRCL 72 ML/MIN; eGFR 77 ML/MIN
[2025-04-17 07:50] VITALS: BP 105/70; PULSE 80; RESP 18
[2025-04-17 08:00] VITALS: RESP 20
[2025-04-17 10:40] VITALS: BP 94/62; PULSE 75; RESP 19; TEMP 97.7; O2SAT 96
[2025-04-17] MEDS ORDERED: LOP25T PO (11:08)
[2025-04-17] MEDS ORDERED: CLOP75TA34 PO (11:08)
[2025-04-17] MEDS ORDERED: FURO20TA4 PO (11:08)
--- NOTE | 2025-04-17 11:12 | DISCHARGE SUMMARY ---
Discharge Summary Providers to CC CC: AYAH SAM MD ~ Discharge Summary Admission Diagnosis: Unstable angina Hospital Course DATE OF ADMISSION: 04/10/25 DATE OF DISCHARGE: 04/17/25 Discharge Diagnosis\Comment: s/p CABG Operations\Procedures: CABG x4 Consultants: cardiothoracic surgery Complications: standard course of recovery postoperatively Condition on DC: Stable Discharge Summary: Patient is a 64 yo male with known CAD, s/p PCI in 2011. He was admitted to this service with 2 weeks h/o progressive exertional chest pain/pressure. Cardiology workup revealed high grade lesions of the LM, prox LAD, diag and mid RCA. Received the above mentioned procedures on 04/12/25. His surgery and recovery have been grossly unremarkable. His pain is well controlled. His breathing is not labored. +BM. Reports normal urinary function. Good BP control. Had long discussion bedside with patient and about sternal precautions. He and asked appropriate questions and are quite motivated to dc home today with family care. *Problems/Diagnosis: (1) S/P CABG x 4 (2) Unstable angina Status: Acute Total Time Spent on D/C: > 30 Minutes Counseling Services Smoking & Tobacco Cessation: 3-10 Minutes JACQUELYN PAYNE Apr 17, 2025 11:09
[2025-04-17] MEDS ORDERED: acetaminophen 1,000mg/100ml IV 100 ML IV SCH (11:45)
== END 2025-04-17 12:10 | disposition home or self-care (01) | DRG 234 ==
LOC: ER 07:49 → ED HOLD 10:32 → PCU 3S 12:10 → CICU 2S 04-12 12:47 → PCU 3S 04-15 11:00
PROVIDERS: ADMIT Family Medicine; ATTEND Family Medicine
PROC: 4A023N7 Measurement of Cardiac Sampling and Pressure, Left Heart, Percutaneous Approach (ICD-10-PCS; 2025-04-11)
PROC: 4A02XM4 Measurement of Cardiac Total Activity, External Approach (ICD-10-PCS; 2025-04-11)
PROC: 3E033HZ Introduction of Radioactive Substance into Peripheral Vein, Percutaneous Approach (ICD-10-PCS; 2025-04-11)
PROC: B2111ZZ Fluoroscopy of Multiple Coronary Arteries using Low Osmolar Contrast (ICD-10-PCS; 2025-04-11)
PROC: B2151ZZ Fluoroscopy of Left Heart using Low Osmolar Contrast (ICD-10-PCS; 2025-04-11)
PROC: B2181ZZ Fluoroscopy of Left Internal Mammary Bypass Graft using Low Osmolar Contrast (ICD-10-PCS; 2025-04-11)
PROC: 021209W Bypass Coronary Artery, Three Arteries from Aorta with Autologous Venous Tissue, Open Approach (ICD-10-PCS; 2025-04-12)
PROC: 06BY3ZZ Excision of Lower Vein, Percutaneous Approach (ICD-10-PCS; 2025-04-12)
PROC: 5A1221Z Performance of Cardiac Output, Continuous (ICD-10-PCS; 2025-04-12)
PROC: 30233M1 Transfusion of Nonautologous Plasma Cryoprecipitate into Peripheral Vein, Percutaneous Approach (ICD-10-PCS; 2025-04-12)
PROC: 30233N1 Transfusion of Nonautologous Red Blood Cells into Peripheral Vein, Percutaneous Approach (ICD-10-PCS; 2025-04-12)
PROC: 30233R1 Transfusion of Nonautologous Platelets into Peripheral Vein, Percutaneous Approach (ICD-10-PCS; 2025-04-12)
PROC: 02100Z9 Bypass Coronary Artery, One Artery from Left Internal Mammary, Open Approach (ICD-10-PCS; principal; 2025-04-12 10:34)
DX: I25.110 Atherosclerotic heart disease of native coronary artery with unstable angina pectoris (principal); E03.9 Hypothyroidism, unspecified; E78.00 Pure hypercholesterolemia, unspecified; I12.9 Hypertensive chronic kidney disease with stage 1 through stage 4 chronic kidney disease, or unspecified chronic kidney disease; F41.9 Anxiety disorder, unspecified; E11.22 Type 2 diabetes mellitus with diabetic chronic kidney disease; N18.9 Chronic kidney disease, unspecified; Z79.82 Long term (current) use of aspirin; Z82.49 Family history of ischemic heart disease and other diseases of the circulatory system; Z95.5 Presence of coronary angioplasty implant and graft
CPT/HCPCS: 0232T; 93306; 93312; 93325; 93458; 96360; 99285; Z7506; Z7508; 36415; 36430; 36600; 71045; 71250; 78452; 80048; 80053; 80061; 81001; 82330; 82435; 82803; 82947; 82948; 83036; 83735; 83880; 83930; 84100; 84132; 84295; 84443; 84484; 85018; 85025; 85027; 85347; 85384; 85610; 85730; 86885; 86900; 86901; 86920; 87081; 87088; 93005; 93017; 93880; 93970; 94002; 94010; 94668; 94760; 97110; 97116; 97161; 99152; 99153; A4333; A4615; A4618; A6212; A6213; A6253; A6258; A6402; A6449; A7000; A7048; A9500; C1751; C1894; G0378; J0131; J0280; J0665; J0690; J1100; J1644; J1815; J2003; J2150; J2250; J2270; J2405; J2440; J2704; J2710; J2720; J2785; J2919; J3010; J3373; J3375; J3480; J3490; J7030; J7040; J7050; J7120; P9012; P9016; P9035; P9045; Q9967